=== PATIENT | female | born 1935 | race Caucasian/White ===

== ENCOUNTER 2018-10-10 11:51 | Inpatient (IN) | payer MEDICARE ==
[~2018-10-10] VITALS: Ht 167.6 cm; Wt 85.7 kg
--- OUTSIDE RECORDS SUMMARY | 2018-10-10 11:54 | XMS REPORT | Clinical Summary ---
Author Author [facility] Address Unknown Phone Unavailable Care Team Providers Care Tele Tech Name Role Phone Asked, No Pcp PCP Unavailable Allergies Comments Active Allergy Reactions Severity Noted Date Aspirin 03/28/2017 Black Pepper 03/28/2017 Medications End Date Status Medication Sig Dispensed Refills Start Date Active zolpidem (AMBIEN) 5 MG Take 5 mg by 0 tablet mouth nightly as needed for sleep. Active ascorbic acid, vitamin C, Take 500 mg 0 (VITAMIN C) 500 MG tablet by mouth daily. Active cyanocobalamin 500 MCG Take 500 mcg 0 tablet by mouth daily. Active pyridoxine, vitamin B6, Take 100 mg 0 (B-6) 100 MG tablet by mouth daily. Active bismuth subsalicylate Chew 524 mg 2 0 (PEPTO BISMOL) 262 mg (two) times a tablet,chewable day. Active ipratropium-albuterol Inhale 2 0 (COMBIVENT RESPIMAT) puffs every 4 20-100 mcg/actuation mist (four) hours inhaler as needed for wheezing. Active divalproex (DEPAKOTE) 500 Take 500 mg 0 MG EC tablet by mouth 3 (three) times a day. Active ipratropium-albuterol Take 3 mL by 0 (DUO-NEB) 0.5-2.5 mg/mL nebulization nebulizer 4 (four) times a day. Active gabapentin (NEURONTIN) Take 100 mg 0 100 mg capsule by mouth 3 (three) times a day. Active melatonin 3 mg tablet Take 3 mg by 0 mouth nightly. Active famotidine (PEPCID) 20 MG Take 20 mg by 0 tablet mouth daily. Active predniSONE (DELTASONE) 10 Take 10 mg by 0 mg tablet mouth daily. Active levothyroxine (SYNTHROID, Take 100 mcg 0 LEVOXYL) 100 mcg tablet by mouth daily. Active traMADol (ULTRAM) 50 mg Take 50 mg by 0 tablet mouth nightly as needed for moderate pain. Active acetaminophen (TYLENOL) Take 325 mg 0 325 MG tablet by mouth every 6 (six) hours as needed for fever. Active acetaminophen-codeine Take 1 tablet 0 (TYLENOL WITH CODEINE #4) by mouth 300-60 mg per tablet every 6 (six) hours as needed for moderate pain. Active sertraline (ZOLOFT) 100 Take 100 mg 0 MG tablet by mouth daily. Active Problems Problem Noted Date Chest pain, rule out acute myocardial infarction 03/28/2017 Cystitis 03/28/2017 Other specified hypothyroidism 03/28/2017 Depression 03/28/2017 Social History Date Tobacco Use Types Packs/Day Years Used Quit: 2001 Former Smoker 40 Smokeless Tobacco: Never Used Alcohol Use Drinks/Week oz/Week Comments No Sex Assigned at Date Recorded Not on file Industry Job Start Date Occupation Not on file Not on file Not on file Travel End Travel History Travel Start No recent travel history available. Last Filed Vital Signs Not on file Plan of Treatment Health Maintenance Due Date Last Done Comments SHINGLES VACCINES (#1) 1984 65+ PNEUMOCOCCAL VACCINE 08/12/1999 (1 of 2 - PCV13) INFLUENZA VACCINE 11/27/2018 Results Not on fileafter 10/09/2017 Insurance Type Payer Benefit Subscriber ID Effective Phone Address Plan / Dates Group Medicare MEDICARE MEDICARE xxxxxxxxxx 1999-P [place], PART A AND resent [place] B O [facility] MEDICAID [facility] xxxxxxxxx 2014-P [employer]+ resent [facility] Medicaid MEDICAID MEDICAID xxxxxxxxx 2016- Present Advance Directives Patient has advance care planning documents, and code status on file. For more i nformation, please contact: Martin Espino [address] [place] [address] Date Inactivated Comments Code Status Date Activated 03/30/2017 12:44 AM DNR 03/28/2017 6:45 PM Code Status decision reached by: Legal Surrogate Name of Surrogate: Nidia Posey Surrogate Relation: 3. Adult Child/Children 03/28/2017 6:45 PM DNR 03/28/2017 8:48 AM Code Status decision reached by: Legal Surrogate Name of Surrogate: Yoanna Posey Surrogate Relation: 3. Adult Child/Children 03/28/2017 8:48 AM Full Code 03/28/2017 6:13 AM Code Status decision reached by: Patient Code Status decision reached by: Patient
--- OUTSIDE RECORDS SUMMARY | 2018-10-10 11:54 | XMS REPORT ---
Author Author [facility] Address Unknown Phone Unavailable Care Team Providers Care Cobol Developer Name Role Phone Unavailable Unavailable Payers Payer Name Policy Type Policy Number Effective Date Expiration Date Problems This patient has no known problems. Allergies, Adverse Reactions, Alerts Allergy Name Allergy Type Status Severity Reaction(s) Onset Date Inactive Date Treating Clinician Comments aspirin DA Active U 2018-02-12 00:00:00 acetaminophen DA Active U 2018-02-12 00:00:00 black pepper DA Active U 2018-02-12 00:00:00 .ACETAMINO DA Active U 2006-11-27 00:00:00 .BLACK PEP DA Active U 2006-11-27 00:00:00 ASPIRIN DA Active U 2006-11-27 00:00:00 No Known Contrast Allergies DA Active U 2006-11-27 00:00:00 No Known Other Allergies DA Active U 2006-11-27 00:00:00 Medications This patient has no known medications. Results Test Description Test Time Test Comments Text Results Atomic Results Result Comments URIC ACID 2018-05-23 22:27:00 URIC ACID (test code=URIC) 4.5 mg/dL 2.6-7.2 [facility] PHONE# for criticals-[phone] or [phone] PHONE , FAX#
[2018-10-10] MEDS ORDERED: ALBUTEROL SULF 0.083% NEB SOLN 3 ML NEB NEB STA (12:33)
[2018-10-10] MEDS ORDERED: IPRATROPIUM BROMIDE 0.02% 2.5 ML NEB NEB ONE ×2 (12:45→15:15)
[2018-10-10] MEDS ORDERED: METHYLPREDNISOLONE SOD SUCC 125 MG/2ML VIAL IV ONE (12:45)
[2018-10-10 13:03] LABS: BASOPHILS # (AUTO) 0.1 (0.0-0.1); BASOPHILS % 0.4 % (0.0-1.0); EOSINOPHILS % 0.1 % (0.0-6.0); HEMATOCRIT 34.5 % (34.2-44.1); HEMOGLOBIN 10.7 g/dL (12.0-16.0); LYMPHOCYTES # (AUTO) 0.6 (1.0-3.2); MEAN CORPUSCULAR HEMOGLOBIN 26.8 pg (28-32); MEAN CORPUSCULAR VOLUME 86.3 fL (81-99); MONOCYTES # (AUTO) 0.7 (0.2-0.8); NEUTROPHILS # (AUTO) 16.8 (2.1-6.9); NEUTROPHILS % 90.6 % (38.7-80.0); PLATELET COUNT 293 x10e3/uL (140-360); RED CELL DISTRIBUTION WIDTH 15.9 % (11.7-14.4)
[2018-10-10 13:13] LABS: INR 1.02; PROTHROMBIN TIME 13.9 seconds (11.9-14.5)
[2018-10-10 13:14] LABS: PARTIAL THROMBOPLASTIN TIME 38.8 seconds (23.8-35.5)
[2018-10-10 13:15] LABS: ABG HCO3 35 mmol/L (23-28); ABG PCO2 58 mmHg (41-51); ABG PH 7.39 (7.31-7.41); ABG PO2 73 mmHg (80-105)
[2018-10-10 13:21] LABS: ALANINE AMINOTRANSFERASE 20 IU/L (0-55); ALBUMIN 2.8 g/dL (3.5-5.0); ALBUMIN/GLOBULIN RATIO 0.7 (0.8-2.0); ALKALINE PHOSPHATASE 112 IU/L (40-150); ANION GAP 14.8 mmol/L (8-16); BLOOD UREA NITROGEN 13 mg/dL (7-26); BUN/CREATININE RATIO 16 (6-25); CARBON DIOXIDE 33 mmol/L (22-29); CHLORIDE 89 mmol/L (98-107); CREATINE KINASE 77 IU/L (29-168); EST GLOMERULAR FILTRATION RATE > 60 ML/MIN (60-); GLUCOSE 150 mg/dL (74-118); MAGNESIUM 2.2 MG/DL (1.3-2.1); POTASSIUM 4.8 mmol/L (3.5-5.1); SODIUM 132 mmol/L (136-145)
[2018-10-10] MEDS ORDERED: ALLOPURINOL100 MG PO (13:27)
[2018-10-10] MEDS ORDERED: SERTRALINE HCL50 MG PO (13:27)
[2018-10-10] MEDS ORDERED: AMLODIPINE BESY10 MG PO (13:27)
[2018-10-10] MEDS ORDERED: GABAPENTIN100 MG PO (13:27)
[2018-10-10] MEDS ORDERED: TRAZODONE HCL50 MG PO (13:27)
[2018-10-10] MEDS ORDERED: FAMOTIDINE20 MG PO (13:27)
[2018-10-10] MEDS ORDERED: METOPROLOL TART25 MG PO (13:27)
[2018-10-10] MEDS ORDERED: LEVOTHYROXINE100 MCG PO (13:27)
[2018-10-10] MEDS ORDERED: POTASSIUM CHLO20 ME1 PO (13:27)
[2018-10-10] MEDS ORDERED: FOLIC ACID1 MG PO (13:27)
[2018-10-10] MEDS ORDERED: DIVALPROEX SOD125 M1 PO (13:27)
[2018-10-10] MEDS ORDERED: FUROSEMIDE40 MG PO (13:27)
[2018-10-10 13:28] LABS: B-TYPE NATRIURETIC PEPTIDE2 440.2 pg/mL (0-100)
--- NOTE | 2018-10-10 13:43 | Diagnostic Imaging Report ---
EXAMINATION: CHEST SINGLE (PORTABLE) INDICATION: Shortness of breath. COMPARISON: None FINDINGS: TUBES and LINES: None. LUNGS: Lungs are moderately inflated. There is central vascular congestion. There are bilateral perihilar and interstitial opacities. Patchy opacities at lung bases, left greater than right. There is asymmetric opacity at the left lung apex. PLEURA: Trace bilateral pleural effusions. No evidence of pneumothorax. HEART AND MEDIASTINUM: The cardiomediastinal silhouette is mildly enlarged. BONES AND SOFT TISSUES: No acute osseous abnormality. Surgical clips project over the left upper hemithorax. UPPER ABDOMEN: No free air under the diaphragm. IMPRESSION: Asymmetric opacity in the left lung apex. This may represent sequela of prior granulomatous disease, however chest CT is suggested for further evaluation. Cardiomegaly with mild pulmonary interstitial edema and trace bilateral pleural effusions. Patchy opacities at the lung bases likely represent atelectasis or alveolar edema. Superimposed pneumonia is possible in the appropriate clinical setting. Signed by: Dr. Margarita Bourgeois MD on 10/10/2018 1:40 PM
--- NOTE | 2018-10-10 14:15 | Diagnostic Imaging Report ---
Exam: Head CT without contrast History: Altered mental status Comparison studies: None Technique: Axial images were obtained from the skull base to the vertex. Coronal and sagittal images reconstructed from the axial data. Dose modulation, iterative reconstruction, and/or weight based adjustment of the mA/kV was utilized to reduce the radiation dose to as low as reasonably achievable. Radiation dose: Total DLP: 1008 cm mGy*cm. Estimated effective dose: DLP x 0.015 Intravenous contrast: None Findings: Exam somewhat limited by artifacts related to patient motion. In spite of limitations: Scalp: No abnormalities. Bones: No fractures, blastic or lytic lesions. Brain sulci: Mildly prominent Ventricles: Mild compensatory dilatation. No hydrocephalus. Extra-axial spaces: No masses, no fluid collection. Parenchyma: No mass, acute hemorrhage or acute cortical insults. Small chronic lacunar infarct in the body of the right caudate nucleus. A few scattered hypodensities in the supratentorial white matter are nonspecific most compatible with chronic microvascular ischemic changes. Sellar/suprasellar region: No abnormalities. Craniocervical junction: Patent foramen magnum. No Chiari one malformation. Incidental findings: Lens replacements for previous cataract surgery. Atherosclerotic calcifications in the carotid siphons and intradural vertebral arteries. IMPRESSION: Exam limited by motion artifacts. In spite of limitations: 1. No acute intracranial abnormalities. 2. Mild generalized brain volume loss. 3. Small chronic lacunar infarct in the right caudate nucleus. 4. Mild chronic microvascular ischemic changes. Signed by: Dr. Gómez Moore M.D. on 10/10/2018 2:12 PM
[2018-10-10] MEDS: PIPER-TAZ 3.375 GM 50 ML IV SCH ×2 (14:45→20:22)
--- NOTE | 2018-10-10 14:50 | NUR ---
called patient family member Funmilayoriley Posey and provided update of patient POC.
[2018-10-10 15:04] LABS: BILIRUBIN,URINE NEGATIVE (NEGATIVE); CLARITY,URINE CLEAR (CLEAR); COLOR,URINE YELLOW (YELLOW); KETONES,URINE TRACE (NEGATIVE); LEUKOCYTE ESTERASE ,URINE NEGATIVE (NEGATIVE); NITRITE,URINE NEGATIVE (NEGATIVE); PROTEIN,URINE DIPSTICK NEGATIVE (NEGATIVE); URINE UROBILINOGEN 0.2 mg/dL (0.2 - 1)
--- NOTE | 2018-10-10 15:09 | NUR ---
patient in bed resting with eyes closed. arroused to name. patient with audible wheezing. er md notified. orders placed into chart.
[2018-10-10] MEDS ORDERED: ALBUTEROL SULF 0.083% NEB SOLN 3 ML NEB NEB ONE (15:12)
[2018-10-10] MEDS ORDERED: ALBUTEROL SULF 0.083% NEB SOLN 3 ML NEB NEB SCH (15:30)
[2018-10-10] MEDS: AZITHROMYCIN 500MG/NS 250 ML 250 ML IV SCH (15:58)
--- OUTSIDE RECORDS SUMMARY | 2018-10-10 16:02 | XMS REPORT | Clinical Summary ---
Author Author [facility] Address Unknown Phone Unavailable Care Team Providers Care Policy And Planning Manager Name Role Phone Asked, No Pcp PCP [...] PART A AND resent [place] B O [facility] MEDICAID [facility] xxxxxxxxx 2014-P [employer]+ resent [facility] Medicaid MEDICAID MEDICAID xxxxxxxxx 2016- Present Advance Directives Patient has advance care planning documents, and code status on file. For more i nformation, please contact: Martin Espino [address] [place] [address] Date Inactivated Comments Code Status Date Activated [...]
[2018-10-10] MEDS ORDERED: SODIUM CHLORIDE 0.9% 50ML 50 ML ONE (16:35)
[2018-10-10] MEDS ORDERED: IOPAMIDOL 370 MG/ML 200 ML INFUS..BTL INJ ONE (16:35)
[2018-10-10 16:51] VITALS: BP 144/68
[2018-10-10 16:52] VITALS: BP 144/68
--- NOTE | 2018-10-10 17:01 | Diagnostic Imaging Report ---
EXAMINATION: CT of the chest with contrast, PE protocol. TECHNIQUE: Spiral CT images of the chest were performed from the lung apices through the level of the adrenal glands after the IV administration of 100 cc of Isovue 370. Thin section reconstructions were obtained with special concentration on the pulmonary arteries. Coronal and sagittal reformatted images were performed. COMPARISON: <none> CLINICAL HISTORY:Shortness of breath, AMS DISCUSSION: Exam limited as it was acquired during partial expiratory phase. Lungs: No filling defects are identified in the main, right or left pulmonary arteries to their segmental levels, to suggest pulmonary embolism. Mildly increased attenuation of the pulmonary parenchyma, likely secondary to scan acquired during partial expiration. Intralobular septal thickening, predominantly noted in the upper lungs. Scattered focal areas of mixed groundglass opacities and focal consolidations in the right upper lobe (series 3, image 30 and 32) left upper lobe (series 3, image 27), lingula (series 3, image 43), left lower lobe (series 3, image 58) and right lower lobe (series 3, image 59). Focal consolidation with air bronchograms in the lingula (series 3, image 62). A few tree-in-bud opacities are noted in the lateral left upper lobe (for example series 3, image 41) and lateral aspect of the right upper lobe (series 3, image 36). Mild bilateral lower lobe compressive atelectasis, right greater than left. Airways: Major airways are clear, without endobronchial lesions. Pleura: Small bilateral pleural effusions, right greater than left. Heart and mediastinum: Thyroid is unremarkable. Moderate cardiomegaly. No pericardial effusion. Aorta is nonaneurysmal. Main pulmonary artery is enlarged, measuring 3.8 cm. Atherosclerotic calcification of the coronary arteries and thoracic aorta. Lymph nodes: Enlarged right lower paratracheal lymph node which measures 1.2 cm in short axis (series 2, image 36). Borderline enlarged para-aortic node which measures 1.0 cm in short axis (series 2, image 36). Enlarged left lower paratracheal lymph node which measures 1.0 cm in short axis (series 2, image 38). Enlarged subcarinal lymph node which measures 1.4 cm in short axis (series 2, image 47) (. No axillary adenopathy. Abdomen: The visualized portions of the liver show diffuse hepatic steatosis. No focal lesions. Spleen, pancreas and adrenal glands are unremarkable. Bones and soft tissues: No aggressive lytic lesions. Generalized osteopenia. Multilevel degenerative disc changes in the thoracic spine. Soft tissues are grossly unremarkable. IMPRESSION: 1. No CT evidence of pulmonary embolism. 2. Findings in bilateral lungs likely represent a combination of multifocal pneumonia or aspiration, and fluid overload/edema. 3. Mild bilateral pleural effusions, right greater than left, and associated compressive atelectasis. 4. Enlarged main pulmonary artery, consistent with pulmonary hypertension. 5. Moderate cardio megaly. 6. Mediastinal adenopathy, as described, likely reactive. 7. Diffuse hepatic stenosis. Signed by: Dr. Herbert Gregg M.D. on 10/10/2018 4:58 PM
[2018-10-10 17:52] VITALS: BP 144/68
[2018-10-10] MEDS ORDERED: IPRATROPIUM BROMIDE 0.02% 2.5 ML NEB NEB SCH (18:00)
[2018-10-10] MEDS: FUROSEMIDE INJ 10 MG/ML 4 ML VIAL IV SCH (18:16)
--- NOTE | 2018-10-10 19:00 | NUR ---
Report received from CHARU Celeste. Patient received alert x1 resting on her bed with confused and complained that "I am Sick", took oxygen off. Assisted to put oxygen back and assisted to fix her position at this time. Denied pain and no SOB. Bed in lower position,locked. Call petersen within reach. Patient instructed to call for help as needed,verbalized and understand. Bed alarm on. Will continue to monitor.
[2018-10-10] MEDS: ALBUTEROL SULF 0.083% NEB SOLN 3 ML NEB NEB SCH ×2 (19:30→23:40)
[2018-10-10] MEDS: IPRATROPIUM BROMIDE 0.02% 2.5 ML NEB NEB SCH ×2 (19:35→23:40)
[2018-10-10 20:00] VITALS: BP 144/71
[2018-10-10] MEDS ORDERED: SODIUM CHLORIDE 0.9% 250ML 250 ML ONE (20:12)
[2018-10-10] MEDS: TRAZODONE HCL 50 MG TAB PO SCH (20:22)
[2018-10-10] MEDS: MELATONIN 5 MG TABLET PO SCH (20:22)
[2018-10-10] MEDS: GABAPENTIN 100 MG CAP PO SCH (20:22)
[2018-10-10 21:00] VITALS: BP 144/71
[2018-10-10] MEDS: METHYLPREDNISOLONE SOD SUCC 125 MG/2ML VIAL IV SCH (21:40)
[2018-10-10 21:43] LABS: CREATINE KINASE MB 2.5 ng/mL (0-5.0)
[2018-10-11] VITALS (8 sets, daily range): BP systolic 124–156; BP diastolic 63–80
[2018-10-11] MEDS: PIPER-TAZ 3.375 GM 50 ML IV SCH ×4 (00:36→17:40)
[2018-10-11] MEDS: ACETAMINOPHEN/CODEINE 300MG - 30MG TAB PO PRN ×2 (00:40→13:47)
[2018-10-11] MEDS: FUROSEMIDE INJ 10 MG/ML 4 ML VIAL IV SCH ×3 (01:31→21:53)
--- NOTE | 2018-10-11 02:35 | Consultation ---
DATE OF CONSULTATION: 10/10/2018 Pulmonary Medicine Consult REASON FOR REFERRAL: Respiratory failure. HISTORY OF PRESENT ILLNESS: Ms. Wynn is a pleasant 83-year-old female with respiratory failure. The patient lives in a halfway. She was having increasing dyspnea. She had associated wheezing. Onset of symptoms reportedly three days. The patient is becoming more confused and on 4 L/minute of oxygen saturation, we are having difficulty going above 94%. The patient is sent to the emergency room. The patient was seen to be quite dyspneic. She was given some transient BiPAP. She improved slowly. However, due to significant basis, she was admitted with respiratory failure. Chest x-ray and CT chest were consistent with bilateral pneumonia, multifocal. PAST MEDICAL HISTORY: Hypertension, COPD on home outpatient oxygen, hypothyroid, anemia, reported dementia, GERD, psychosis, CKD, and chronic back pain. MEDICATIONS: Medication list reviewed per the chart record. ALLERGIES: ZOLPIDEM, ASPIRIN, AND PEPPER. SOCIAL HISTORY: No alcohol, no drugs. The patient smoked from age 11 to 74, one pack per day. She is from [place], [place] and she lived [place] the country during her up[place], where [place] had a [place] farm and then she also had a horse. She transiently moved to [place] and then back to [place], lived on the farm. Eventually, she moved to [place]. She is biofuel for large period of time that she was in [place]. FAMILY HISTORY: Noncontributory. REVIEW OF SYSTEMS: Cannot get reliably, she is confused. OBJECTIVE: VITAL SIGNS: Currently afebrile, vital signs noted and reviewed per the chart record. 2 L/minute nasal cannula oxygen with 94% oxygen saturation. GENERAL: In no acute distress, has difficulty capturing her thoughts and memory. She gets short of breath after a few words. HEENT: Normocephalic and atraumatic. NECK: Supple. Throat midline. LUNGS: Bilateral air entry, mild wheezes, moderate air entry, which is decreased. CARDIOVASCULAR: S1, S2. No murmurs, rubs, or gallops. ABDOMEN: Soft and nontender. EXTREMITIES: No clubbing, no cyanosis, there is 1+, 2+ leg edema bilaterally. INTEGUMENT: No rash, there are mild stasis changes on legs. LABORATORY DATA: 4.8 potassium, 0.8 creatinine. 33 bicarbonate. 90 white count, 35 hematocrit, 293 platelets. LFTs mostly normalized. Chest x-ray with evidence mostly left lower lobe pneumonia. CT of chest, however, shows multifocal opacities, mild bronchiectasis was 30 mm in diameter at the trunk. IMPRESSION AND PLAN: 1. Acute respiratory failure, BiPAP salvage. 2. Chronic respiratory failure, hypoxemia, on home outpatient oxygen. 3. Encephalopathy, multifactorial, metabolic. 4. Bilateral pneumonia. 5. History of chronic obstructive pulmonary disease, treated as additional exacerbation. 6. Bronchiectasis. 7. Hypertension. 8. Hypothyroid condition. 9. Reported dementia. 10. Gastroesophageal reflux disease. 11. History of psychosis. 12. Mild chronic kidney disease. 13. History of chronic back pain. 14. History of biofuel exposure in youth and chronic smoking. Continue supportive oxygen. Wean off BiPAP as tolerated. Followup mentation or blood gases to assess state of COPD. Steroids. Antibiotics. Bronchodilators. Serial neuropsychiatric exams. The patient needs intermittent radiography to ensure improvement. If there is slight improvement, we will consider bronchoscopy. We will also get good sputum culture with this structural lung disease underlying issue. Thank you very much, Dr. Owens for allowing me to participate in the care of Ms. Wynn. Do not hesitate to contact me if I can help in anyway. MD JHON West/PENNY /[id number]
[2018-10-11] MEDS: IPRATROPIUM BROMIDE 0.02% 2.5 ML NEB NEB SCH ×6 (03:00→23:00)
[2018-10-11] MEDS: ALBUTEROL SULF 0.083% NEB SOLN 3 ML NEB NEB SCH ×6 (03:00→23:00)
--- NOTE | 2018-10-11 05:25 | NUR ---
Patient complained pain on her left cheek and inside of mouth. Called Dr. Owens twice to get ordered,left voice massages at this. Waiting for MD's call back.
[2018-10-11 05:33] LABS: BASOPHILS # (AUTO) 0.1 (0.0-0.1); BASOPHILS % 0.5 % (0.0-1.0); EOSINOPHILS # (AUTO) 0.1 (0.0-0.4); EOSINOPHILS % 0.6 % (0.0-6.0); HEMOGLOBIN 10.6 g/dL (12.0-16.0); LYMPHOCYTES # (AUTO) 0.4 (1.0-3.2); LYMPHOCYTES % 3.4 % (18.0-39.1); MEAN CORPUSCULAR HEMOGLOBIN 26.2 pg (28-32); MEAN CORPUSCULAR HGB CONC 30.3 g/dL (31-35); MEAN CORPUSCULAR VOLUME 86.4 fL (81-99); MONOCYTES # (AUTO) 0.2 (0.2-0.8); MONOCYTES % 1.7 % (4.4-11.3); NEUTROPHILS # (AUTO) 9.9 (2.1-6.9); NEUTROPHILS % 89.6 % (38.7-80.0); PLATELET COUNT 295 x10e3/uL (140-360); RED BLOOD COUNT 4.05 x10e6/uL (3.6-5.1); RED CELL DISTRIBUTION WIDTH 15.8 % (11.7-14.4)
[2018-10-11] MEDS: METHYLPREDNISOLONE SOD SUCC 125 MG/2ML VIAL IV SCH ×2 (06:04→14:49)
[2018-10-11] MEDS: LEVOTHYROXINE SODIUM 100 MCG TAB PO SCH (06:04)
[2018-10-11 06:09] LABS: ALBUMIN 2.5 g/dL (3.5-5.0); ALBUMIN/GLOBULIN RATIO 0.6 (0.8-2.0); ANION GAP 13.9 mmol/L (8-16); CALCIUM 10.1 mg/dL (8.4-10.2); CREATININE, SERUM 0.98 mg/dL (0.57-1.11); POTASSIUM 3.9 mmol/L (3.5-5.1)
--- NOTE | 2018-10-11 07:00 | NUR ---
Report given to oncoming nurse. No issued noted.
[2018-10-11] MEDS: FAMOTIDINE 20 MG TAB PO SCH (07:37)
[2018-10-11] MEDS: SERTRALINE HCL 50 MG TAB PO SCH (10:05)
[2018-10-11] MEDS: AZITHROMYCIN 500MG/NS 250 ML 250 ML IV SCH (10:05)
[2018-10-11] MEDS: FOLIC ACID 1 MG TAB PO SCH (10:05)
[2018-10-11] MEDS: ALLOPURINOL 100 MG TAB PO SCH (10:05)
[2018-10-11] MEDS: GABAPENTIN 100 MG CAP PO SCH ×3 (10:05→21:54)
[2018-10-11] MEDS: AMLODIPINE BESYLATE 10 MG TAB PO SCH (10:06)
[2018-10-11] MEDS: METOPROLOL TARTRATE 25 MG TAB PO SCH (10:06)
[2018-10-11] MEDS ORDERED: DEXTROSE 50% SYRINGE 50 ML IV PRN (12:45)
--- NOTE | 2018-10-11 13:41 | NUR ---
Dr Shields notified of consult.
[2018-10-11 13:47] LABS: CREATINE KINASE MB 1.1 ng/mL (0-5.0)
--- NOTE | 2018-10-11 15:25 | NUR ---
Nutrition Screen Note RD Recommendation for Physician: -Continue current diet as ordered Plan of Care: RD following, monitoring for tolerance and adequacy Nutrition reason for involvement: Diagnosis Primary Diagnose(s): CHF, COPD exacerbation PMH: Hypertension, COPD on home outpatient oxygen, hypothyroid, anemia, reported dementia, GERD, psychosis, CKD, and chronic back pain. Ht: 68in Wt: 191.13lb BMI: 29.1kg/m2 IBW: 140lb RD Assessment: (10/11) Chart reviewed. Labs and meds reviewed. 83yo F, who was admitted from residential for respiratory failure and confusion. Visited pt in the room. Pt reported fair appetite with >50% observed lunch intake. Per daughter, pt was having nausea and vomited this AM. Pt has some chewing difficulty with her denture but refused texture modification. Pt also reported swallowing problem for many years. Pt stated the bone below my neck is bothering me when I swallow. It is not in the right position. However, pt was tolerating current diet texture without aspiration episode noted. Weight has been stable. Will continue to monitor and follow. Current Diet: cardiac diet Malnutrition Evaluation (10/11/2018) The patient does not meet criteria for a specified degree of malnutrition at this time. Will re-evaluate at follow-up as appropriate. Diet Education Needs Assessment: Diet education indicated, pt was not interested. Nutrition Care Level: low Signed: Sanam Choi, , RD, LD
[2018-10-11] MEDS: ENOXAPARIN SOD INJ 40 MG/0.4 ML SYR SC SCH (16:51)
--- NOTE | 2018-10-11 17:49 | NUR ---
Pulmonary Medicine DATE OF ENCOUNTER: 10/11/2018 SUBJECTIVE: 3 L/min by nasal cannula. feels about the same, not better. lungs are tight. ate 50%. still coughs. REVIEW OF SYSTEMS: no gi bleeding, no chest pain OBJECTIVE: VITAL SIGNS: vital signs noted per the chart record. GENERAL: NAD, calmer HEENT: Normocephalic and atraumatic. NECK: Supple. Throat midline. LUNGS: Bilateral air entry, mild wheezes, mild rhonchi CARDIOVASCULAR: S1, S2. No murmurs, rubs ABDOMEN: Soft, nontender. EXTREMITIES: No clubbing, no cyanosis, 1 - 2+ leg edema bilaterally. INTEGUMENT: No rash, mild stasis changes on legs. LABORATORY DATA: 3.9 k, 0.98 cr. 11 wbc. 35 hct. 295 plt. IMPRESSION AND PLAN: 1. Acute respiratory failure, BiPAP salvage. Better 2. Chronic respiratory failure, hypoxemic. on outpatient oxygen. 3. Encephalopathy, multifactorial, metabolic. Better 4. Bilateral gram negative pneumonia, acquired prior to hospitalization. 5. History of chronic obstructive pulmonary disease, treated as additional exacerbation. 6. Bronchiectasis. 7. Hypertension. 8. Hypothyroid condition. 9. Reported dementia. 10. Gastroesophageal reflux disease. 11. History of psychosis. 12. Mild chronic kidney disease. 13. History of chronic back pain. 14. History of biofuel exposure in youth and chronic smoking. Continue supportive oxygen. Followup mentation serially Steroids wean. Antibiotics Bronchodilators. Repeat AM CXR If there is poor improvement, we will consider bronchoscopy to get a good sputum culture with the underlying structural lung disease Thank you very much, Dr. Owens for allowing me to participate in the care of Ms. Wynn. Do not hesitate to contact me if I can help in anyway.
--- NOTE | 2018-10-11 19:00 | NUR ---
Walking rounds done and report given. Call petersen within reach.
--- NOTE | 2018-10-11 20:39 | History and Physical ---
CHIEF COMPLAINT: Shortness of breath, lower extremity edema. HISTORY OF PRESENT ILLNESS: This is an 83-year-old female with history of CHF, COPD, who currently lives in a halfway, reports from the halfway due to hypoxia and lower extremity edema. The patient is a very poor historian, likely due to underlying dementia, so information is being obtained from the daughter at bedside. Daughter reports that she has been very short of breath over the last several days and has been having lower extremity edema. There are some reports of some cough, congestion, and subjective fever. The patient was presented here and was found to have a low oxygen saturation. She was apparently on oxygen at the halfway as well. The patient was seen and evaluated at bedside on the medical floor. Currently, she is in IMCU. She is breathing much better. Got diuretics, steroids and antibiotics and is being followed up by Pulmonary. REVIEW OF SYSTEMS: Pertinent positives: Lower extremity edema, shortness of breath, cough, congestion. Pertinent negatives: Denies any chest pain, palpitation, nausea, vomiting, diarrhea, dysuria, hematuria, frequency, urgency, lightheadedness, dizziness, abdominal pain, headaches, or any other complaints. The rest of the 14-point review of systems are reviewed with the patient and are negative. ALLERGIES: TO ASPIRIN, HEPARIN, AND AMBIEN. HOME MEDICATIONS: Furosemide 40 mg daily, potassium chloride 20 mEq daily, divalproex 125 mg daily, allopurinol 100 mg daily, amlodipine 10 mg daily, Pepcid 20 mg daily, folic acid 1 mg daily, gabapentin 100 mg p.o. t.i.d., levothyroxine 100 mcg daily, metoprolol 25 mg daily, sertraline 50 mg daily, trazodone 50 mg daily. PAST MEDICAL HISTORY: She has hypothyroidism, peripheral neuropathy, hypertension, morbid obesity, dementia, CHF. PAST SURGICAL HISTORY: Reports none. FAMILY HISTORY: Hypertension and diabetes. SOCIAL HISTORY: No drugs. No alcohol. Does not smoke. She has children. She was a former smoker. She is in the halfway. PHYSICAL EXAMINATION: VITAL SIGNS: Temperature is 97.1, pulse is 81, respiratory rate is 18, blood pressure is 131/74, pulse ox 96% on 2 L nasal cannula. GENERAL: Not in acute distress. Alert and oriented x3. Cooperative on examination. HEENT: Head is normocephalic and atraumatic. Eyes; pupils are equal, round, and reactive to light bilaterally. Extraocular movements are intact. NECK: Supple. Good range of motion. Throat, no evidence of erythema or exudates in the posterior pharynx. Has poor dentition. PULMONARY: Clear to auscultation bilaterally. She does have some expiratory wheezing appreciated with some fine crackles. CARDIOVASCULAR: Positive S1 and S2. No murmurs, rubs, or gallops. ABDOMEN: Soft and nontender to palpation. Bowel sounds present. MUSCULOSKELETAL: Strength is 5/5 throughout. No evidence of any muscle deficits on examination. No weakness appreciated. NEUROLOGICAL: Cranial nerves II through XII grossly intact. No evidence of any neurological deficits on exam. SKIN: Intact. Warm to touch. Good cap refill. PSYCHIATRIC: Normal affect and mood. EXTREMITIES: She has 1+ pedal edema in bilateral lower extremities. LABORATORY FINDINGS: Showed white count 11, hemoglobin 10.6, hematocrit 35, platelets of 295. Coagulation: PT 13.9, INR 1. Chemistry: Sodium 132, potassium 3.9, chloride 91, bicarb 35, anion gap of 13, BUN 16, creatinine 0.98, glucose 187, calcium 10.1, AST 17, ALT 16, total bilirubin 0.3. Troponins are negative. Albumin is 6.5. Urinalysis was negative. Blood gas shows pH 7.39, pCO2 of 58, pO2 of 70, bicarb 35. MICROBIOLOGY: Urine cultures pending. Blood cultures pending. IMAGING STUDIES: Chest x-ray shows symmetrical transfer in the left lung apex. There is some interstitial pulmonary edema. Could be underlying pneumonia as well. CT brain found to be negative for any acute findings. CT chest, no evidence of pulmonary embolism. Bilateral lungs represent combination of multifocal pneumonia or aspiration and fluid overload edema. Mild bilateral pleural effusions, right greater than left. Moderate cardiomegaly. Mediastinal adenopathy, likely reactive and diffuse hepatic steatosis. IMPRESSION: 1. Acute exacerbation of congestive heart failure with unknown dysfunction. 2. Healthcare-associated pneumonia. 3. Chronic obstructive pulmonary disease exacerbation. 4. Hypertension. 5. Hypothyroidism. 6. Baseline dementia. PLAN: At this time, get a 2D echo, cardiology consultation, cardioprotective medications, and put on IV Lasix. Blood and urine cultures pending. Continue with IV antibiotics and Pulmonary is following very closely. Continue with IV steroids for her COPD, neb treatments, and antibiotics. Resume same home medications including antihypertensive medications. Continue with levothyroxine from home. Start on Lovenox 40 mg subcu for DVT prophylaxis. Put on a heart-healthy diet. MD CEDRIC Gerber/MODSruthi /[id number]
[2018-10-11] MEDS ORDERED: TRAZODONE HCL 50 MG TAB PO SCH (21:00)
[2018-10-11] MEDS: TRAZODONE HCL 50 MG TAB PO SCH (21:53)
[2018-10-11] MEDS: MELATONIN 5 MG TABLET PO SCH (21:53)
[2018-10-12] VITALS (8 sets, daily range): BP systolic 127–148; BP diastolic 61–70
[2018-10-12] MEDS: IPRATROPIUM BROMIDE 0.02% 2.5 ML NEB NEB SCH ×6 (03:00→23:25)
[2018-10-12] MEDS: ALBUTEROL SULF 0.083% NEB SOLN 3 ML NEB NEB SCH ×6 (03:00→23:25)
[2018-10-12 05:15] LABS: BASOPHILS # (AUTO) 0.1 (0.0-0.1); BASOPHILS % 0.4 % (0.0-1.0); HEMATOCRIT 37.4 % (34.2-44.1); LYMPHOCYTES # (AUTO) 0.7 (1.0-3.2); LYMPHOCYTES % 3.8 % (18.0-39.1); MEAN CORPUSCULAR HEMOGLOBIN 26.1 pg (28-32); MEAN CORPUSCULAR HGB CONC 29.4 g/dL (31-35); MEAN CORPUSCULAR VOLUME 88.8 fL (81-99); MONOCYTES # (AUTO) 0.8 (0.2-0.8); MONOCYTES % 4.5 % (4.4-11.3); NEUTROPHILS # (AUTO) 15.5 (2.1-6.9); NEUTROPHILS % 86.8 % (38.7-80.0); PLATELET COUNT 330 x10e3/uL (140-360); RED BLOOD COUNT 4.21 x10e6/uL (3.6-5.1); RED CELL DISTRIBUTION WIDTH 15.9 % (11.7-14.4)
[2018-10-12 05:27] LABS: ANION GAP 16.9 mmol/L (8-16); CALCIUM 10.2 mg/dL (8.4-10.2); CREATININE, SERUM 1.06 mg/dL (0.57-1.11); POTASSIUM 3.9 mmol/L (3.5-5.1)
[2018-10-12] MEDS: LEVOTHYROXINE SODIUM 100 MCG TAB PO SCH (06:29)
[2018-10-12] MEDS: PIPER-TAZ 3.375 GM 50 ML IV SCH ×5 (06:29→23:18)
[2018-10-12] MEDS: ACETAMINOPHEN/CODEINE 300MG - 30MG TAB PO PRN ×2 (06:30→18:21)
--- NOTE | 2018-10-12 06:31 | Diagnostic Imaging Report ---
EXAMINATION: CHEST SINGLE (PORTABLE) INDICATION: Pneumonia. Congestive heart failure. COMPARISON: 10/10/18. FINDINGS: TUBES and LINES: None. LUNGS: No interval change in appearance of the lungs, with mild multifocal patchy densities particularly in the left upper and lower lobes. Mild elevation of the right hemidiaphragm. Mild prominence of the pulmonary vasculature. PLEURA: No or pneumothorax. Small bilateral pleural effusions. HEART AND MEDIASTINUM: Cardiac size remains mildly enlarged. BONES AND SOFT TISSUES: No acute osseous lesion. Soft tissues are unremarkable. UPPER ABDOMEN: No free air under the diaphragm. IMPRESSION: No significant interval change. Findings again suggestive of mild pulmonary venous congestion with possibly superimposed infection. Signed by: Dr. Ronald Coffey M.D. on 10/12/2018 6:28 AM
[2018-10-12] MEDS: FAMOTIDINE 20 MG TAB PO SCH (08:00)
[2018-10-12] MEDS: AZITHROMYCIN 500MG/NS 250 ML 250 ML IV SCH (08:05)
[2018-10-12] MEDS: AMLODIPINE BESYLATE 10 MG TAB PO SCH (08:05)
[2018-10-12] MEDS: FUROSEMIDE INJ 10 MG/ML 4 ML VIAL IV SCH ×2 (08:05→20:24)
[2018-10-12] MEDS: GABAPENTIN 100 MG CAP PO SCH ×3 (08:05→20:24)
[2018-10-12] MEDS: METOPROLOL TARTRATE 25 MG TAB PO SCH ×2 (08:05→17:26)
[2018-10-12] MEDS: FOLIC ACID 1 MG TAB PO SCH (08:05)
[2018-10-12] MEDS: ALLOPURINOL 100 MG TAB PO SCH (08:06)
[2018-10-12] MEDS: SERTRALINE HCL 50 MG TAB PO SCH (08:06)
[2018-10-12] MEDS ORDERED: PREDNISONE 20 MG TAB PO SCH (09:00)
--- NOTE | 2018-10-12 11:00 | NUR ---
DAUGHTER AT BEDSIDE. PATIENT IN NAD AND NO COMPLAINTS AT THIS TIME.
--- NOTE | 2018-10-12 13:42 | NUR ---
Pulmonary Medicine DATE OF ENCOUNTER: 10/12/2018 SUBJECTIVE: 3 L/min by nasal cannula. 96% saturation. ate 1/3 meal. pain when coughing, coughs a lot. some phlegm thick green being expectorated. REVIEW OF SYSTEMS: no gi bleeding, no chest pain OBJECTIVE: VITAL SIGNS: vital signs noted per the chart record. GENERAL: NAD, talkative HEENT: Normocephalic and atraumatic. NECK: Supple. Throat midline. LUNGS: Bilateral air entry, mild wheezes, mild to mod rhonchi CARDIOVASCULAR: S1, S2. No murmurs, rubs ABDOMEN: Soft, nontender. EXTREMITIES: No clubbing, no cyanosis, 1 - 2+ leg edema bilaterally. INTEGUMENT: No rash, mild stasis changes on legs. LABORATORY DATA: 1.1 cr, k 3.9. 18 wbc. 37 hct. IMPRESSION AND PLAN: 1. Acute respiratory failure, BiPAP salvage. Better 2. Chronic respiratory failure, hypoxemic. on outpatient oxygen. 3. Encephalopathy, multifactorial, metabolic. Better 4. Bilateral gram negative pneumonia, acquired prior to hospitalization. 5. History of chronic obstructive pulmonary disease, treated as additional exacerbation. 6. Bronchiectasis. 7. Hypertension. 8. Hypothyroid condition. 9. Reported dementia. 10. Gastroesophageal reflux disease. 11. History of psychosis. 12. Mild chronic kidney disease. 13. History of chronic back pain. 14. History of biofuel exposure in youth and chronic smoking. Continue supportive oxygen. Steroids wean. Antibiotics follow cultures Bronchodilators. Repeat AM CXR toradol cough medication Thank you very much, Dr. Owens for allowing me to participate in the care of Ms. Wynn. Do not hesitate to contact me if I can help in anyway.
--- NOTE | 2018-10-12 14:57 | Progress Note ---
DATE: 10/12/2018 Medicine Progress Note SUBJECTIVE: The patient is doing well today with no other complaints. She states breathing a little bit better, but she is still short of breath on examination. LAB FINDINGS: Show white count is 17, but she is on steroids, hemoglobin 11, hematocrit 37, and platelets of 330. Chemistry; sodium 143, potassium 3.9, chloride 94, bicarb 36, anion gap of 16, BUN is 29, creatinine is 1, glucose is 267, calcium is 10.2. Urinalysis negative. Blood cultures negative. Urine cultures negative. Chest x-ray from this morning shows no significant interval change. Findings suggestive of mild pulmonary vascular congestion superimposed infection. OBJECTIVE: VITAL SIGNS: Temperature 98, pulse 73, respirations 18, blood pressure is 127/60, pulse ox 96% on 3 L nasal cannula. GENERAL: Not in acute distress, alert and oriented x3. Cooperative on examination. HEENT: Head is normocephalic and atraumatic. Eyes; pupils are equal, round, and reactive to light bilaterally. Extraocular movements are intact. NECK: Supple. Good range of motion. THROAT: No evidence of erythema or exudates in the posterior pharynx. Has poor dentition. PULMONARY: Clear to auscultation bilaterally. No wheezing, rales, or rhonchi. No crackles appreciated. Shows decreased breath sounds bilaterally. CARDIOVASCULAR: Positive S1, S2. No murmurs, rubs, or gallops appreciated. ABDOMEN: Soft, nondistended, nontender to palpation. Bowel sounds present. MUSCULOSKELETAL: Strength is 5/5 throughout. No evidence of any muscle deficits on examination. NEUROLOGICAL: Cranial nerves II through XII are grossly intact. No evidence of any neurological deficits on exam. SKIN: Intact. Warm to touch. Good capillary refill. PSYCHIATRIC: Normal affect and mood. EXTREMITIES: No edema. Good range of motion throughout. IMPRESSION: 1. Acute exacerbation of congestive heart failure with unknown dysfunction. 2. Healthcare-associated pneumonia. 3. Chronic obstructive pulmonary disease exacerbation. 4. Hypertension. 5. Hypothyroidism. 6. Baseline dementia. PLAN: At this time, we are still awaiting on a 2D echo results. Cardiology is following. She is on cardioprotective medications. Continue with IV diuretics for now. Get a.m. labs. Continue with steroids, neb treatments, antibiotics. Pulmonary is following closely. Continue same home medications. Continue with Lovenox for DVT prophylaxis. Encourage ambulation. The patient is on home O2 as well. MD CEDRIC Gerber/PENNY /[id number]
[2018-10-12] MEDS: BENZONATATE 100 MG CAP PO SCH ×2 (15:57→20:24)
[2018-10-12] MEDS ORDERED: ENOXAPARIN SOD INJ 40 MG/0.4 ML SYR SC SCH (17:00)
[2018-10-12] MEDS: ARTIFICIAL TEARS (OPTH) 15 ML BTL OU SCH (17:26)
[2018-10-12] MEDS: ENOXAPARIN SOD INJ 40 MG/0.4 ML SYR SC SCH (17:26)
--- NOTE | 2018-10-12 18:45 | NUR ---
PATIENT MOVED TO ROOM 189 VIA BED WITH ALL BELONGING D/T LOW CENSUS. ARIELA (DAUGHTER) CALLED TO NOTIFY , MESSAGE LEFT
--- NOTE | 2018-10-12 19:53 | Consultation ---
DATE OF CONSULTATION: 10/12/2018 Cardiac Consultation Report REASON FOR CONSULTATION: Heart failure, respiratory distress. HISTORY OF PRESENT ILLNESS: Information taken from the patient record by reviewing [facility], from here, from nursing staff as well as from her daughter, who is at bedside. She is a delightful 83-year-old lady, who is known with longstanding history of COPD. She is on [facility] oxygen. She does have also history of chronic lower extremity edema, several episodes of hypoxemia, and diagnosis of CHF. She does have history of chronic kidney disease, right renal cyst, gout, hypothyroidism, dementia. The patient is really truly stay in wheel chair. She does not do much activity. She is taking her medication at [facility]. She needs to be brought urgently to this institution because of severe shortness of breath, swelling of the lower extremities, orthopnea, paroxysmal nocturnal dyspnea. She needs to have rescue BiPAP as well as diuretics were given and other treatment. She looks better today with less swelling. She is able to be on nasal cannula. Her daughter said she does not to do much of activity. She is forgetful. She is in wheelchair. She does have episodes of leg edema, leg swelling. She had recent venous Doppler and she has been told there is no blood clot. She did have also several cellulitis of the lower extremities. REVIEW OF SYSTEMS: Really truly taken with the help of the daughter and more than the patient herself because of her demented status. GENERAL: No fever. No chills. HEENT: Remarkable for decreased hearing. PULMONARY AND CARDIAC: There is no prior history of myocardial infarction. There is no history of coronary artery disease. She does have history of congestive heart failure with repeated swelling of the lower extremity, shortness of breath, easy fatigability, etc., as per acute illness. GI: Constipation. Occasional nausea. No abdominal pain. : The patient is incontinent. She uses diapers. MUSCULOSKELETAL: Aches and pain. NEUROLOGICAL: The patient in wheelchair. ENDOCRINE: There is no history of diabetes mellitus. HEMATOLOGY: There is no history of GI bleed or bleeding tendency. The rest of the 14-point review of system are reviewed and only as mentioned above. ALLERGIES: THE PATIENT IS INTOLERANT TO ASPIRIN RATHER THAN ALLERGIC TO ASPIRIN, HEPARIN QUESTIONABLE DETAILS, AMBIEN CAUSING MORE CONFUSION, AND PEPPER CAUSING HER TO HAVE DIFFICULTY BREATHING. USP MEDICATIONS: Include Norvasc 10 mg a day, Lasix 40 mg a day, potassium chloride 20 mEq a day. Levothyroxine 100 mcg a day. Lopressor 25 mg a day, allopurinol 100 mg a day. Depakote 125 mg a day. Folic acid 1 mg a day. Gabapentin 100 mg t.i.d., Zoloft 50 mg a day. Trazodone 50 mg a day, Pepcid 20 mg a day. PAST MEDICAL HISTORY: 1. COPD, on home oxygen. 2. History of CHF questionable details. 3. Gout. 4. Chronic kidney disease. 5. Repeated cellulitis of the lower extremity. 6. Chronic swelling of the lower extremities. 7. Dementia. 8. Ventral hernia. 9. Hemorrhoids. 10. Neurology and neuritis. FAMILY HISTORY: Few member of the family hypertensive, diabetic. No premature coronary artery disease. In fact, her daughter with her she whitley the baby of the daughter's. She does have diabetes. SOCIAL HISTORY: [facility]. She is a . She is nonsmoker and non-alcohol drinker. PHYSICAL EXAMINATION: VITAL SIGNS: Height of 5 feet 8 inches, weight of 195 pounds, blood pressure 130/70, heart rate of 80, respiratory rate of 18. HEENT: Pupils are reactive. NECK: No elevation of jugular venous pulsation. No bruit. No thyromegaly. No lymphadenopathy. CHEST: Decreased lung expansion. Decreased air entry in bases. I cannot hear wheezes but other attending heard wheezes on her on admission. Heart PMI 5th left intercostal space. Normal first and second heart sound. Ejection systolic murmur. ABDOMEN: Soft with good bowel sounds. No organomegaly. EXTREMITIES: Decreasing edema. No feet pulses. Good capillary refill. MUSCULOSKELETAL: The patient's gait not examined. As per daughter, she is in wheelchair. She is able to move her extremities. She is really truly forgetful. SKIN: There is no evidence of cellulitis now. LABORATORY DATA: Sodium of 143, potassium 3.9, BUN 29, creatinine of 1.06. White blood cell count of 17.8, hemoglobin of 11, hematocrit 37%, platelet count of 330,000. Troponin of . IMAGING DATA: Chest x-ray showing bilateral pleural effusion and congestion. CT chest suggestive for pneumonia superimposed on aspiration with lymphadenopathy shown to be reactive prominence of pulmonary artery, probably indicating pulmonary hypertension. Also Cardiac enzymes done today were negative. EKG showing normal sinus rhythm, low-voltage QRS, right bundle branch block. Nonspecific ST changes. ABG showed pH of 7.39, pCO2 of 58, PO2 of 73 on 2 L nasal cannula. IMPRESSION AND PLAN: 1. Respiratory distress with hypercapnia, pCO2 of 58, possibly representing [id number] exacerbation of chronic obstructive pulmonary disease. 2. Definitely right-sided heart failure as evident by edema. The finding on the CT scan of pulmonary hypertension and the pulmonary changes and the patient being on oxygen dependency. 3. Possible diastolic heart failure, possible systolic heart failure. Echocardiogram will be helpful in differentiation. 4. Hypertension. 5. Pulmonary hypertension. 6. Hypothyroidism. 7. Dementia. 8. Debility. 9. Leukocytosis. 10. GERD. 11. Abdominal ventral hernia. 12. Probability of coronary artery disease, but we discussed the case with the daughter. PLAN: Plan will be for very conservative treatment because of her comorbid condition and her demented status. The patient will be followed with you. Orders are written. We will try to decrease the dose of amlodipine because of the leg edema and swelling. Will make metoprolol to twice a day because of the short-acting nature of this medication. Differential diagnosis, workup, care discussed with the daughter. Questions are answered and total care of more than 50 minutes. Questions are answered. MD LEANNA Cee/OSMANL /[id number]
[2018-10-12] MEDS: TRAZODONE HCL 50 MG TAB PO SCH (20:24)
[2018-10-12] MEDS: MELATONIN 5 MG TABLET PO SCH (20:24)
[2018-10-13] VITALS (8 sets, daily range): BP systolic 107–151; BP diastolic 50–89
[2018-10-13] MEDS: KETOROLAC TROMETHAMINE 30 MG/ML VIAL IM PRN ×2 (01:29→10:32)
--- NOTE | 2018-10-13 02:23 | NUR ---
Patient had medium liquid-soft green BM, assisted to given bed bath and changed gown/linens and diaper with help of go[employer]enna Darren. Connected to [employer] at this time. Patient tolerated well. Will continue to monitor.
--- NOTE | 2018-10-13 02:40 | NUR ---
Bedbath given to patient at this time.
[2018-10-13] MEDS: ALBUTEROL SULF 0.083% NEB SOLN 3 ML NEB NEB SCH ×6 (03:30→23:00)
[2018-10-13] MEDS: IPRATROPIUM BROMIDE 0.02% 2.5 ML NEB NEB SCH ×6 (03:30→23:00)
[2018-10-13] MEDS: PIPER-TAZ 3.375 GM 50 ML IV SCH ×3 (05:39→18:50)
[2018-10-13] MEDS: LEVOTHYROXINE SODIUM 100 MCG TAB PO SCH (05:39)
[2018-10-13 05:42] LABS: BASOPHILS # (AUTO) 0.1 (0.0-0.1); BASOPHILS % 0.5 % (0.0-1.0); HEMATOCRIT 34.2 % (34.2-44.1); LYMPHOCYTES # (AUTO) 1.5 (1.0-3.2); LYMPHOCYTES % 12.4 % (18.0-39.1); MEAN CORPUSCULAR HGB CONC 29.2 g/dL (31-35); MEAN CORPUSCULAR VOLUME 89.1 fL (81-99); MONOCYTES % 7.7 % (4.4-11.3); NEUTROPHILS # (AUTO) 9.1 (2.1-6.9); NEUTROPHILS % 73.1 % (38.7-80.0); PLATELET COUNT 293 x10e3/uL (140-360); RED BLOOD COUNT 3.84 x10e6/uL (3.6-5.1); RED CELL DISTRIBUTION WIDTH 15.9 % (11.7-14.4)
[2018-10-13 05:47] LABS: ALBUMIN 2.4 g/dL (3.5-5.0); ANION GAP 13.7 mmol/L (8-16); CALCIUM 9.5 mg/dL (8.4-10.2); CREATININE, SERUM 1.06 mg/dL (0.57-1.11); POTASSIUM 3.7 mmol/L (3.5-5.1)
[2018-10-13 06:09] LABS: ALBUMIN/GLOBULIN RATIO 0.6 (0.8-2.0)
[2018-10-13 06:13] LABS: THYROID STIMULATING HORMONE 0.281 uIU/mL (0.350-4.940)
[2018-10-13] MEDS: GUAIFENESIN 200 MG/10 ML UDC PO PRN ×2 (06:24→13:11)
[2018-10-13] MEDS: ACETAMINOPHEN/CODEINE 300MG - 30MG TAB PO PRN ×2 (06:24→17:47)
[2018-10-13 07:15] LABS: CHOL/HDL RATIO 4.4 (3.0-3.6)
--- NOTE | 2018-10-13 07:20 | NUR ---
Report given to oncoming nurse,walking round done. No issued noted.
[2018-10-13] MEDS ORDERED: AMLODIPINE BESYLATE 10 MG TAB PO SCH (09:00)
[2018-10-13] MEDS ORDERED: PREDNISONE 20 MG TAB PO SCH (09:00)
[2018-10-13] MEDS: SERTRALINE HCL 50 MG TAB PO SCH (09:03)
[2018-10-13] MEDS: FAMOTIDINE 20 MG TAB PO SCH (09:03)
[2018-10-13] MEDS: METOPROLOL TARTRATE 25 MG TAB PO SCH ×2 (09:04→17:50)
[2018-10-13] MEDS: BENZONATATE 100 MG CAP PO SCH ×3 (09:04→21:25)
[2018-10-13] MEDS: GABAPENTIN 100 MG CAP PO SCH ×3 (09:04→21:25)
[2018-10-13] MEDS: AMLODIPINE BESYLATE 5 MG TAB PO SCH (09:04)
[2018-10-13] MEDS: FOLIC ACID 1 MG TAB PO SCH (09:06)
[2018-10-13] MEDS: ALLOPURINOL 100 MG TAB PO SCH (09:06)
[2018-10-13] MEDS: AZITHROMYCIN 500MG/NS 250 ML 250 ML IV SCH (09:06)
[2018-10-13] MEDS: ARTIFICIAL TEARS (OPTH) 15 ML BTL OU SCH ×2 (09:09→17:01)
--- NOTE | 2018-10-13 12:29 | NUR ---
Pulmonary Medicine DATE OF ENCOUNTER: 10/13/2018 SUBJECTIVE: Still expectorating phlegm. Mildly less phlegm. Still thick, green expectorate. 4 L/min oxygen. Still cough related pains REVIEW OF SYSTEMS: no gi bleeding, no epistaxis OBJECTIVE: VITAL SIGNS: vital signs noted per the chart record. GENERAL: NAD, talkative HEENT: Normocephalic and atraumatic. NECK: Supple. Throat midline. LUNGS: Bilateral air entry, mild wheezes, mild to mod rhonchi CARDIOVASCULAR: S1, S2. No murmurs, rubs ABDOMEN: Soft, nontender. EXTREMITIES: No clubbing, no cyanosis, 1+ leg edema bilaterally. INTEGUMENT: No rash, mild stasis changes on legs. LABORATORY DATA: 3.7 k, cr 1.06. bun 33. 12 wbc. 34 hct. plt 293. IMPRESSION AND PLAN: 1. Acute respiratory failure, BiPAP salvage. off bipap 2. Chronic respiratory failure, hypoxemic. on outpatient oxygen. 3. Encephalopathy, multifactorial, metabolic. Better 4. Bilateral gram negative pneumonia, acquired prior to hospitalization. 5. History of chronic obstructive pulmonary disease, treated as additional exacerbation. 6. Bronchiectasis, chronic underlying lung disease. 7. Hypertension. 8. Hypothyroid condition. 9. Reported dementia. 10. Gastroesophageal reflux disease. 11. History of psychosis. 12. Mild chronic kidney disease. 13. History of chronic back pain. 14. History of biofuel exposure in youth and chronic smoking. Continue supportive oxygen. Steroids wean Antibiotics submitted sputum cultures, follow up Bronchodilators. Repeat AM CXR toradol, cough medication Thank you very much, Dr. Owens for allowing me to participate in the care of Ms. Wynn. Do not hesitate to contact me if I can help in anyway.
[2018-10-13] MEDS: FUROSEMIDE 20 MG TAB PO SCH (13:11)
[2018-10-13] MEDS: POTASSIUM CHLORIDE 20 MEQ TAB CR PO SCH (13:11)
[2018-10-13] MEDS: ENOXAPARIN SOD INJ 40 MG/0.4 ML SYR SC SCH (17:49)
[2018-10-13] MEDS ORDERED: CEPACOL SORE THROAT LOZENGES PO PRN (18:30)
--- NOTE | 2018-10-13 20:37 | Progress Note ---
DATE: 10/13/2018 Medicine Progress Note SUBJECTIVE: The patient reports having some pain throughout. I did adjust her Tylenol No. 3 to every 6 hours to q.12. No overnight events. She reports breathing much better. PHYSICAL EXAMINATION: VITAL SIGNS: Temperature is 98.6, pulse 72, respiratory rate is 21, blood pressure 151/72, pulse ox 98% on 3 L nasal cannula. GENERAL: Not in acute distress, alert and oriented x3. Cooperative on examination. HEENT: Head is normocephalic and atraumatic. Eyes; pupils are equal, round, and reactive to light bilaterally. Extraocular movements are intact. NECK: Supple. Good range of motion. THROAT: No evidence of erythema or exudates in the posterior pharynx. Has poor dentition. PULMONARY: Clear to auscultation bilaterally. No wheezing, rales, or rhonchi. No crackles appreciated. CARDIOVASCULAR: Positive S1, S2. No murmurs, rubs, or gallops appreciated. ABDOMEN: Soft, nondistended, nontender to palpation. Bowel sounds present. MUSCULOSKELETAL: Strength is 5/5 throughout. No evidence of any muscle deficits on examination. NEUROLOGICAL: Cranial nerves II through XII are grossly intact. No evidence of any neurological deficits on exam. SKIN: Intact. Warm to touch. Good capillary refill. PSYCHIATRIC: Normal affect and mood. EXTREMITIES: No edema. Good range of motion throughout. LABORATORY DATA: Lab findings show white count 12.4, hemoglobin is 10, hematocrit is 34, platelets of 293. Coagulation; PT 30, INR 1, PTT 38. Chemistry; sodium 142, potassium 3.7, chloride 94, bicarb 38, anion gap of 13, BUN 33, creatinine is 1, glucose 156, calcium 9.5, albumin is 2.4. TSH 0.481, LDL of 87. MICROBIOLOGY: Blood cultures no growth. Urine cultures negative. Sputum cultures were pending. IMPRESSION AND PLAN: 1. Acute exacerbation of congestive heart failure of unknown dysfunction. Still waiting on a 2D echo results. Cardiology is following. 2. Diuretics. We will continue with electrolyte replacement. In relation to chronic obstructive pulmonary disease on steroids. 3. Continue with antibiotics, Pulmonary is following very closely. She is complaining of pain which I will change the q.12 Tylenol No. 3 to q.6 hours p.r.n. Otherwise, continue same plan of care. She is on Lovenox for deep vein thrombosis prophylaxis. The patient is already on home O2. MD CEDRIC Gerber/PENNY /[id number]
[2018-10-13] MEDS: TRAZODONE HCL 50 MG TAB PO SCH (21:24)
[2018-10-13] MEDS: MELATONIN 5 MG TABLET PO SCH (21:25)
[2018-10-14] VITALS (10 sets, daily range): BP systolic 112–143; BP diastolic 50–91
[2018-10-14] MEDS: PIPER-TAZ 3.375 GM 50 ML IV SCH ×4 (00:50→18:59)
[2018-10-14] MEDS: IPRATROPIUM BROMIDE 0.02% 2.5 ML NEB NEB SCH ×7 (03:00→23:30)
[2018-10-14] MEDS: ALBUTEROL SULF 0.083% NEB SOLN 3 ML NEB NEB SCH ×6 (03:00→23:30)
[2018-10-14] MEDS: ACETAMINOPHEN/CODEINE 300MG - 30MG TAB PO PRN ×2 (04:23→20:22)
[2018-10-14 05:43] LABS: ANION GAP 13.9 mmol/L (8-16); CALCIUM 9.5 mg/dL (8.4-10.2); CREATININE, SERUM 1.05 mg/dL (0.57-1.11); POTASSIUM 3.9 mmol/L (3.5-5.1)
[2018-10-14] MEDS: LEVOTHYROXINE SODIUM 100 MCG TAB PO SCH (05:48)
--- NOTE | 2018-10-14 06:40 | NUR ---
Rec'd pt in bed sleeping, VS stable, no c/o at this time. will continue to monitor
--- NOTE | 2018-10-14 06:51 | Diagnostic Imaging Report ---
EXAMINATION: CHEST SINGLE (PORTABLE) INDICATION: ^pneumonia COMPARISON: 10/12/2018 FINDINGS: AP view TUBES and LINES: None. LUNGS: Lungs are well inflated. Central vascular congestion on mild interstitial edema. Again seen bilateral hazy opacities at the lung bases. PLEURA: No pneumothorax. Suspected trace bilateral pleural effusions. HEART AND MEDIASTINUM: The cardiomediastinal silhouette is enlarged. BONES AND SOFT TISSUES: No acute osseous lesion. Soft tissues are unremarkable. UPPER ABDOMEN: No free air under the diaphragm. IMPRESSION: No significant interval change from prior exam. Unchanged pulmonary vascular congestion and mild interstitial edema. Suspected small bilateral pleural effusions. Bibasilar mild hazy opacities, likely subsegmental atelectasis. However, underlying pneumonia cannot be excluded in the appropriate clinical context. Signed by: Dr. Ta Saba MD on 10/14/2018 6:48 AM
[2018-10-14] MEDS: ALLOPURINOL 100 MG TAB PO SCH (08:38)
[2018-10-14] MEDS: BENZONATATE 100 MG CAP PO SCH ×3 (08:39→22:19)
[2018-10-14] MEDS: AMLODIPINE BESYLATE 5 MG TAB PO SCH (08:39)
[2018-10-14] MEDS: GABAPENTIN 100 MG CAP PO SCH ×3 (08:39→22:19)
[2018-10-14] MEDS: SERTRALINE HCL 50 MG TAB PO SCH (08:39)
[2018-10-14] MEDS: FAMOTIDINE 20 MG TAB PO SCH (08:40)
[2018-10-14] MEDS: FOLIC ACID 1 MG TAB PO SCH (08:40)
[2018-10-14] MEDS: METOPROLOL TARTRATE 25 MG TAB PO SCH ×2 (08:40→16:37)
[2018-10-14] MEDS: FUROSEMIDE 20 MG TAB PO SCH (08:40)
[2018-10-14] MEDS: POTASSIUM CHLORIDE 20 MEQ TAB CR PO SCH (08:40)
[2018-10-14] MEDS: ARTIFICIAL TEARS (OPTH) 15 ML BTL OU SCH ×2 (09:00→16:24)
[2018-10-14] MEDS ORDERED: PREDNISONE 20 MG TAB PO SCH (09:00)
[2018-10-14] MEDS: AZITHROMYCIN 500MG/NS 250 ML 250 ML IV SCH (10:00)
--- NOTE | 2018-10-14 12:27 | NUR ---
Pulmonary Medicine DATE OF ENCOUNTER: 10/14/2018 SUBJECTIVE: Cough still. patient with continued pain on coughing. CXR mild bilateral pneumonitis, stable. Complicating of tarry stools. 3 L/min oxygen. REVIEW OF SYSTEMS: no rash, no epistaxis OBJECTIVE: VITAL SIGNS: vital signs noted per the chart record. GENERAL: NAD, talkative HEENT: Normocephalic and atraumatic. NECK: Supple. Throat midline. LUNGS: Bilateral air entry, mild rhonchi CARDIOVASCULAR: S1, S2. No murmurs, rubs ABDOMEN: Soft, nontender. EXTREMITIES: No clubbing, no cyanosis, 1+ leg edema bilaterally. INTEGUMENT: No rash, mild stasis changes on legs. LABORATORY DATA: k 3.9, 1.1 cr. yesterday 12 wbc. 34 hct. 293 plt. IMPRESSION AND PLAN: 1. Acute respiratory failure, BiPAP salvage. off bipap 2. Chronic respiratory failure, hypoxemic. on outpatient oxygen. 3. Encephalopathy, multifactorial, metabolic. Better 4. Bilateral gram negative pneumonia, acquired prior to hospitalization. 5. History of chronic obstructive pulmonary disease, treated as additional exacerbation. 6. Bronchiectasis, chronic underlying lung disease. 7. Hypertension. 8. Hypothyroid condition. 9. Reported dementia. 10. Gastroesophageal reflux disease. 11. History of psychosis. 12. Mild chronic kidney disease. 13. History of chronic back pain. 14. History of biofuel exposure in youth & chronic smoking. Continue supportive oxygen. Steroids wean Antibiotics sputum cultures follow up Bronchodilators. Repeat AM CXR cough medication repeat h/h, gi consult hold blood thinners as necessary Thank you very much, Dr. Owens for allowing me to participate in the care of Ms. Wynn. Do not hesitate to contact me if I can help in anyway.
[2018-10-14 13:17] LABS: BASOPHILS # (AUTO) 0.1 (0.0-0.1); BASOPHILS % 0.6 % (0.0-1.0); EOSINOPHILS # (AUTO) 0.1 (0.0-0.4); EOSINOPHILS % 0.4 % (0.0-6.0); HEMATOCRIT 38.8 % (34.2-44.1); HEMOGLOBIN 11.4 g/dL (12.0-16.0); LYMPHOCYTES # (AUTO) 0.9 (1.0-3.2); LYMPHOCYTES % 6.7 % (18.0-39.1); MEAN CORPUSCULAR HEMOGLOBIN 26.6 pg (28-32); MEAN CORPUSCULAR HGB CONC 29.4 g/dL (31-35); MEAN CORPUSCULAR VOLUME 90.4 fL (81-99); MONOCYTES # (AUTO) 0.6 (0.2-0.8); MONOCYTES % 4.3 % (4.4-11.3); NEUTROPHILS # (AUTO) 11.2 (2.1-6.9); NEUTROPHILS % 80.2 % (38.7-80.0); PLATELET COUNT 298 x10e3/uL (140-360); RED BLOOD COUNT 4.29 x10e6/uL (3.6-5.1); RED CELL DISTRIBUTION WIDTH 16.2 % (11.7-14.4)
[2018-10-14] MEDS ORDERED: SODIUM CHLORIDE 0.9% 250ML 250 ML ONE (13:18)
[2018-10-14 13:24] LABS: INR 0.91; PROTHROMBIN TIME 12.7 seconds (11.9-14.5)
[2018-10-14 13:25] LABS: PARTIAL THROMBOPLASTIN TIME 31.2 seconds (23.8-35.5)
[2018-10-14 14:58] LABS: LYMPHOCYTES % (MANUAL) 8 % (19-48); MONOCYTES % (MANUAL) 4 % (3.4-9.0); MYELOCYTES % (MANUAL) 2 % (0-0); NEUTROPHILS % (MANUAL) 86 % (40-74)
[2018-10-14 14:59] LABS: ANISOCYTOSIS SLIGHT; PLATELET MORPHOLOGY COMMENT NORMAL; RBC MORPHOLOGY COMMENT NORMAL
[2018-10-14 15:00] LABS: PLATELET ESTIMATE ADEQUATE
[2018-10-14] MEDS: PANTOPRAZOLE 40 MG 10ML VIAL IV SCH (16:24)
[2018-10-14] MEDS: NYSTATIN 15 GM POWDER UD BTL TOP SCH (16:39)
--- NOTE | 2018-10-14 18:37 | NUR ---
Dr. De Los Santos paged for new patient consult
--- NOTE | 2018-10-14 19:32 | Progress Note ---
DATE: 10/14/2018 Medicine Progress Note SUBJECTIVE: The patient apparently had some black tarry stool today this morning. GI has been consulted. There is also some evidence of some purulent discharge from lower lumbar suturing that was performed by Dermatology as an outpatient. PHYSICAL EXAMINATION: VITAL SIGNS: Temperature is 97, pulse 76, respiratory rate 15, blood pressure 133/67, and pulse ox 97% on 2 L nasal cannula. GENERAL: Not in acute distress, alert and oriented x3. Cooperative on examination. HEENT: Head is normocephalic and atraumatic. Eyes; pupils are equal, round, and reactive to light bilaterally. Extraocular movements are intact bilaterally. NECK: Supple. Good range of motion. THROAT: No evidence of erythema or exudates in the posterior pharynx. Has poor dentition. PULMONARY: Clear to auscultation bilaterally. No wheezing, rales, or rhonchi. No crackles appreciated. CARDIOVASCULAR: Positive S1, S2. No murmurs, rubs, or gallops appreciated. ABDOMEN: Soft, nondistended, nontender to palpation. Bowel sounds present. MUSCULOSKELETAL: Strength is 5/5 throughout. No evidence of any muscle deficits on examination. No weakness appreciated. NEUROLOGICAL: Cranial nerves II through XII are grossly intact. No evidence of any neurological deficits on exam. SKIN: Intact. Warm to touch. Good capillary refill. PSYCHIATRIC: Normal affect and mood. EXTREMITIES: No edema. Good range of motion throughout. LABORATORY DATA: Lab findings show white count of 14, hemoglobin 11.4, hematocrit of 38, platelets of 298. Coagulation was normal. Chemistry; sodium 142, potassium 3.9, chloride 93, bicarb 39, anion gap of 13, BUN is 25, creatinine is 1, glucose is 123, calcium is 9.5. Stool occult blood was positive. MICROBIOLOGY: Blood cultures no growth. Urine cultures were negative. Sputum cultures showed to be currently normal lexus. IMAGING STUDIES: Chest x-ray from this morning showed no significant interval change from prior examination. Unchanged pulmonary vascular congestion with mild interstitial edema. Suspected small bilateral pleural effusion. Bibasilar mild hazy opacity likely subsegmental atelectasis could be underlying pneumonia. IMPRESSION: 1. Acute exacerbation of congestive heart failure with diastolic dysfunction. 2. Healthcare associated pneumonia. 3. Chronic obstructive pulmonary disease exacerbation. 4. Hypertension. 5. Hypothyroidism. 6. Baseline dementia. 7. Lower lumbar wound infection with sutures. 8. Black tarry stool, concern for upper gastrointestinal bleed. PLAN: At this time, continue with IV diuretics. IV antibiotics. All cultures were found to be negative. Continue steroids, neb treatments, and antibiotics. Pulmonary is following very closely. In relation to her new GI bleed or concern for GI bleed, GI has been consulted to put on Protonix 40 mg IV b.i.d. She does have like a wound infection in lower lumbar aspect of her spine on physical exam, in which I will go ahead and get a wound culture and start on IV antibiotics. Discontinue the azithromycin. Continue with vancomycin and Zosyn. Consultants involved Pulmonary, Cardiology, GI and Infectious Disease. MD CEDRIC Gerber/MODL /[id number]
--- NOTE | 2018-10-14 20:05 | NUR ---
patient received from the ICU via bed. patient alert and oriented at time of arrival. All personal belonging with the patient at this time. The patient complained of kevin area pain at this time. Sheriff in place and draining.
[2018-10-14] MEDS: VANCOMYCIN 1GM/NS 250 ML 250 ML IV SCH (20:28)
[2018-10-14] MEDS: TRAZODONE HCL 50 MG TAB PO SCH (22:19)
[2018-10-14] MEDS: MELATONIN 5 MG TABLET PO SCH (22:19)
[2018-10-15] VITALS (9 sets, daily range): BP systolic 129–184; BP diastolic 43–98
[2018-10-15] MEDS: PIPER-TAZ 3.375 GM 50 ML IV SCH ×5 (00:36→23:42)
[2018-10-15] MEDS: IPRATROPIUM BROMIDE 0.02% 2.5 ML NEB NEB SCH ×6 (03:00→23:00)
[2018-10-15] MEDS: ALBUTEROL SULF 0.083% NEB SOLN 3 ML NEB NEB SCH ×6 (03:00→23:00)
--- NOTE | 2018-10-15 04:43 | NUR ---
patient in bed with eye closed, bed in low and locked position, IV intact.
[2018-10-15] MEDS: LEVOTHYROXINE SODIUM 100 MCG TAB PO SCH (05:42)
[2018-10-15 05:50] LABS: BASOPHILS # (AUTO) 0.1 (0.0-0.1); BASOPHILS % 0.7 % (0.0-1.0); EOSINOPHILS # (AUTO) 0.2 (0.0-0.4); EOSINOPHILS % 1.6 % (0.0-6.0); HEMATOCRIT 35.6 % (34.2-44.1); HEMOGLOBIN 10.8 g/dL (12.0-16.0); LYMPHOCYTES # (AUTO) 2.1 (1.0-3.2); LYMPHOCYTES % 15.4 % (18.0-39.1); MEAN CORPUSCULAR HEMOGLOBIN 26.9 pg (28-32); MEAN CORPUSCULAR HGB CONC 30.3 g/dL (31-35); MEAN CORPUSCULAR VOLUME 88.6 fL (81-99); MONOCYTES # (AUTO) 0.7 (0.2-0.8); MONOCYTES % 5.4 % (4.4-11.3); NEUTROPHILS # (AUTO) 9.1 (2.1-6.9); PLATELET COUNT 271 x10e3/uL (140-360); RED BLOOD COUNT 4.02 x10e6/uL (3.6-5.1); RED CELL DISTRIBUTION WIDTH 16.1 % (11.7-14.4)
[2018-10-15 06:12] LABS: ANION GAP 12.8 mmol/L (8-16); CALCIUM 9.4 mg/dL (8.4-10.2); CREATININE, SERUM 1.06 mg/dL (0.57-1.11); POTASSIUM 3.8 mmol/L (3.5-5.1)
--- NOTE | 2018-10-15 07:10 | NUR ---
RCD PT AT BED PT IS ALERT AND ORIENTED PT RESTING ON BED NO SIGNS OF ANY DISTRESS NOTED IV PATENT BED LOW AND LOCKED CALL LIGHT IN REACH
--- NOTE | 2018-10-15 07:50 | NUR ---
PT WENT TO PROCEDURE IN SAFE CONDITION
--- NOTE | 2018-10-15 08:45 | NUR ---
PT IS FROM [facility] AND WILL RETURN UPON DISCHARGE
[2018-10-15] MEDS ORDERED: PREDNISONE 20 MG TAB PO SCH (09:00)
[2018-10-15 09:01] LABS: ANISOCYTOSIS SLIGHT; LYMPHOCYTES % (MANUAL) 20 % (19-48); MONOCYTES % (MANUAL) 3 % (3.4-9.0); MYELOCYTES % (MANUAL) 1 % (0-0); NEUTROPHILS % (MANUAL) 76 % (40-74); PLATELET ESTIMATE ADEQUATE; PLATELET MORPHOLOGY COMMENT NORMAL; RBC MORPHOLOGY COMMENT NORMAL
--- NOTE | 2018-10-15 09:15 | NUR ---
PT BACK AFTER PROCEDURE PT IS ALERT AND ORIENTED VITALS CHECKED PT RESTING ON BED BED LOW AND LOCKED CALL LIGHT IN REACH
[2018-10-15] MEDS: VANCOMYCIN 1GM/NS 250 ML 250 ML IV SCH ×2 (10:00→20:00)
[2018-10-15] MEDS: PANTOPRAZOLE 40 MG 10ML VIAL IV SCH ×2 (10:00→17:00)
[2018-10-15] MEDS: GABAPENTIN 100 MG CAP PO SCH ×3 (10:00→21:00)
[2018-10-15] MEDS: FOLIC ACID 1 MG TAB PO SCH (10:00)
[2018-10-15] MEDS: NYSTATIN SUSPENSION 5 ML UDC PO SCH ×4 (10:00→21:00)
[2018-10-15] MEDS: ALLOPURINOL 100 MG TAB PO SCH (10:00)
[2018-10-15] MEDS: FUROSEMIDE 20 MG TAB PO SCH (10:00)
[2018-10-15] MEDS: NYSTATIN 15 GM POWDER UD BTL TOP SCH ×2 (10:00→17:00)
[2018-10-15] MEDS: SERTRALINE HCL 50 MG TAB PO SCH (10:00)
[2018-10-15] MEDS: POTASSIUM CHLORIDE 20 MEQ TAB CR PO SCH (10:00)
[2018-10-15] MEDS: PREDNISONE 10 MG TAB PO SCH (10:00)
[2018-10-15] MEDS: AMLODIPINE BESYLATE 5 MG TAB PO SCH (10:00)
[2018-10-15] MEDS: BENZONATATE 100 MG CAP PO SCH ×3 (10:00→21:00)
[2018-10-15] MEDS: ARTIFICIAL TEARS (OPTH) 15 ML BTL OU SCH ×2 (10:00→17:00)
[2018-10-15] MEDS: METOPROLOL TARTRATE 25 MG TAB PO SCH ×2 (10:00→17:00)
--- NOTE | 2018-10-15 11:01 | Operative Report ---
DATE OF PROCEDURE: 10/15/2018 SURGEON: Ildefonso Shore MD PROCEDURE: Esophagogastroduodenoscopy with brushings and biopsies. INDICATIONS FOR PROCEDURE: Heartburn, indigestion, history of melena, guaiac-positive stools. MEDICATIONS: The patient was done under MAC, please see anesthesiologist's note. PROCEDURE IN DETAIL: With the patient in left lateral decubitus position the flexible fiberoptic Olympus gastroscope was introduced into the esophagus under direct visualization without any difficulty. There were some scattered whitish plaques noted pretty much throughout the esophagus and brushings were obtained to rule out Juliet. The scope was then advanced with ease into the stomach traversing a small sliding hiatal hernia. Mucosa overlying the antrum and the body revealed some diffuse erythema and moderate edema and biopsies were obtained and sent to stain for H pylori. Minute ulcers were noted in the antrum without active bleeding or stigmata of recent hemorrhage. Biopsies were obtained. Pylorus was of normal contour and shape, it was intubated with ease and the scope was advanced all the way to the second portion of the duodenum. The scope was then withdrawn slowly. Mucosa overlying the proximal second portion and duodenal bulb appeared to be within normal limits. The scope was then withdrawn back into the stomach and retroflexed and mucosa overlying the fundus and cardia appeared to be within normal limits. The scope was then straightened out. The stomach was decompressed. The scope was subsequently withdrawn. The patient tolerated the procedure well. IMPRESSION: 1. Rule out Juliet esophagitis. 2. Small sliding hiatal hernia. 3. Gastritis. 4. Gastric ulcers, antrum, minute without active bleeding or stigmata of recent hemorrhage. Biopsies obtained. PLAN: Follow up histology. Continue Protonix 40 mg IV b.i.d. Start nystatin swish and swallow as ordered. Findings do not necessarily explain the patient's melena. She might benefit from a colonoscopy. Ildefonso Shore MD [facility] [place]/OSMANL /[id number] cc: Dave Owens MD
[2018-10-15] MEDS ORDERED: SODIUM CHLORIDE 0.9% 250ML 250 ML ONE (11:02)
--- NOTE | 2018-10-15 12:30 | NUR ---
Spoke with Dr. Owens regarding dc plan. He states he's monitoring cultures, but anticipate discharge back to [place] on Saturday; most likely on oral abx.
--- NOTE | 2018-10-15 13:03 | NUR ---
Pulmonary Medicine DATE OF ENCOUNTER: 10/15/2018 SUBJECTIVE: CXR with left atelectasis small, o/w stable 2 L/min oxygen by [place] rosa placed yesterday less productive cough, more retained secretions REVIEW OF SYSTEMS: no rash, no epistaxis OBJECTIVE: VITAL SIGNS: vital signs noted per the chart record. GENERAL: NAD, talkative HEENT: Normocephalic and atraumatic. NECK: Supple. Throat midline. LUNGS: Bilateral air entry, mild rhonchi CARDIOVASCULAR: S1, S2. No murmurs, rubs ABDOMEN: Soft, nontender. EXTREMITIES: No clubbing, no cyanosis, 1+ leg edema bilaterally. INTEGUMENT: No rash, mild stasis changes on legs. LABORATORY DATA: 3.8 k, 1.1 cr. 39 hco3. 14 wbc, 36 hct. IMPRESSION AND PLAN: 1. Acute respiratory failure, BiPAP salvage. off bipap 2. Chronic respiratory failure, hypoxemic. on outpatient oxygen. 3. Encephalopathy, multifactorial, metabolic. Better 4. Bilateral gram negative pneumonia, acquired prior to hospitalization. 5. History of chronic obstructive pulmonary disease, treated as additional exacerbation. 6. Bronchiectasis, chronic underlying lung disease. 7. Hypertension. 8. Hypothyroid condition. 9. Reported dementia. 10. Gastroesophageal reflux disease. 11. History of psychosis. 12. Mild chronic kidney disease. 13. History of chronic back pain. 14. History of biofuel exposure in youth & chronic smoking. 15. melena, GI bleed Continue supportive oxygen. Steroids wean Antibiotics Bronchodilators. Repeat intermittent CXR until cleared Augment bronchial hygiene, CPT cough medication hold blood thinners as necessary for GI bleed Thank you very much, Dr. Owens for allowing me to participate in the care of Ms. Wynn. Do not hesitate to contact me if I can help in anyway.
--- NOTE | 2018-10-15 13:27 | Progress Note ---
DATE: 10/15/2018 Medicine Progress Note SUBJECTIVE: The patient is doing much better today with no other issues. She underwent an EGD today, which showed evidence of gastritis, but no evidence of any active bleeding. PHYSICAL EXAMINATION: VITAL SIGNS: Temperature is 98.2, pulse 71, respiratory rate 20, blood pressure 146/43, pulse ox 94% on 3 L nasal cannula. GENERAL: Not in acute distress, alert and oriented x3. Cooperative on examination. HEENT: Head is normocephalic and atraumatic. Eyes; pupils are equal, round, and reactive to light bilaterally. Extraocular movements are intact bilaterally. NECK: Supple. Good range of motion. THROAT: No evidence of erythema or exudates in the posterior pharynx. Has poor dentition. PULMONARY: Clear to auscultation bilaterally. No wheezing, rales, or rhonchi. No crackles appreciated. CARDIOVASCULAR: Positive S1, S2. No murmurs, rubs, or gallops appreciated. ABDOMEN: Soft, nondistended, nontender to palpation. Bowel sounds present. MUSCULOSKELETAL: Strength is 5/5 throughout. No evidence of any muscle deficits on examination. No weakness appreciated. NEUROLOGICAL: Cranial nerves II through XII are grossly intact. No evidence of any neurological deficits on exam. SKIN: Intact. Warm to touch. Good capillary refill. PSYCHIATRIC: Normal affect and mood. EXTREMITIES: No edema. Good range of motion throughout. LABORATORY DATA: White count 13.5, hemoglobin 10.8, hematocrit is 35, platelets of 271. Chemistries reviewed; sodium 144, potassium 3.8, chloride 96, bicarb 39, anion gap 12, BUN is 23, creatinine is 1, glucose 123, calcium 9.4. Cultures; blood cultures, no growth. Urine cultures were negative. Sputum cultures seem to be negative. IMAGING STUDIES: Chest x-ray today shows no significant interval change from prior examination. Unchanged pulmonary vascular congestion and mild interstitial edema. Suspect a small bilateral pleural effusion seen. IMPRESSION: 1. Acute exacerbation of congestive heart failure with diastolic dysfunction. 2. Healthcare associated pneumonia. 3. Chronic obstructive pulmonary disease exacerbation. 4. Hypertension. 5. Hypothyroidism. 6. Baseline dementia. 7. Lower lumbar wound infection with sutures, much improved now with antibiotics. 8. Black tarry stool with concern for upper GI bleed. Status post EGD performed on 10/15/2018: Shows gastritis, small hiatal hernia, gastric ulcers without any evidence of any active bleeding and concerns for Juliet esophagitis. PLAN: At this time, continue with IV antibiotics for underlying pneumonia. Also on diuretics. All cultures have been found to be negative. She is on steroids, neb treatments, and antibiotics and Pulmonary is following closely. She will be on oral nystatin for possible Juliet esophagitis as well as Protonix b.i.d. as per GI recommendations. We will continue with IV antibiotics for now. ID got involved as well. Pulmonary, Cardiology, GI and Infectious Disease all been consulted. We will follow very closely. Discussed case with Case Management about placement. Currently, the patient lives in a care home and will likely end up going back to the same facility. MD CEDRIC Gerber/PENNY /[id number]
[2018-10-15] MEDS: ACETAMINOPHEN/CODEINE 300MG - 30MG TAB PO PRN (16:29)
[2018-10-15] MEDS ORDERED: PROPOFOL IV EMULSION 10 MG/ML 50 ML VIAL ONE (18:30)
--- NOTE | 2018-10-15 19:17 | NUR ---
PT RESTING ON BED BED SIDE REPORT GIVEN TO ONCOMING NURSE
[2018-10-15] MEDS ORDERED: FENTANYL CITRATE/PF 100MCG/2 ML INJ ONE (19:39)
[2018-10-15] MEDS: MELATONIN 5 MG TABLET PO SCH (21:00)
[2018-10-15] MEDS: TRAZODONE HCL 50 MG TAB PO SCH (21:00)
--- NOTE | 2018-10-15 23:09 | Consultation ---
DATE OF CONSULTATION: 10/15/2018 CHIEF COMPLAINT: The patient is concerned about infection. HISTORY OF PRESENT ILLNESS: This patient who is an 83-year-old, she was admitted on October 10 through the emergency room. The patient comes in with shortness of breath and not feeling well, aching all over. The patient was a little bit confused. Does not provide any meaningful information. PAST MEDICAL HISTORY: The patient has a history of COPD, hypothyroidism, hypertension, dementia, GERD, psychosis, chronic kidney disease, chronic back pain. PAST SURGICAL HISTORY: Denies. ALLERGIES: NKA. SOCIAL HISTORY: No smoking, drug abuse, or alcohol abuse. FAMILY HISTORY: Could not be obtained. REVIEW OF SYSTEMS: She denies any. The patient was admitted to be seen by Pulmonary. She was seen by Cardiology. Her sputum showing yeast. Blood cultures were negative. Her white count when she first came was 11, went up to 17, and now is 13.5. Hemoglobin of 10.8. Sodium 144, potassium of 3.8, creatinine 1.06. She had a chest x-ray, which showed vascular congestion, small bilateral effusion, basilar mild hazy opacities. PHYSICAL EXAMINATION: GENERAL: She is currently alert and oriented x3, does not seem to be in acute distress. VITAL SIGNS: Stable. Currently afebrile. HEENT: She does not appear icteric. NECK: Supple. CHEST: A few crackles bilateral. COR: S1, S2. No S3, S4, or murmur. ABDOMEN: Soft. Bowel sounds present. No tenderness. EXTREMITIES: No edema. SKIN: No rash. IMPRESSION: 1. Shortness of breath on admission, seem to have resolved. 2. History of chronic obstructive pulmonary disease, history of hypertension, history of dementia, history of anemia. I would recommend to discontinue antibiotic. Continue supportive care at the present time. The patient I think here with fluid overload. Clinically, seems to be stable. 3. Sputum represent yeast, probably oral lexus. I would recommend to observe the patient clinically. We will discuss Internal Medicine. Further recommendations to follow. MD PAULA Sheldon/PENNY /[id number]
[2018-10-16] VITALS (8 sets, daily range): BP systolic 106–162; BP diastolic 60–76
[2018-10-16] MEDS: IPRATROPIUM BROMIDE 0.02% 2.5 ML NEB NEB SCH ×6 (03:15→23:40)
[2018-10-16] MEDS: ALBUTEROL SULF 0.083% NEB SOLN 3 ML NEB NEB SCH ×6 (03:15→23:40)
[2018-10-16] MEDS: NYSTATIN SUSPENSION 5 ML UDC PO SCH ×5 (05:58→20:18)
[2018-10-16] MEDS: PIPER-TAZ 3.375 GM 50 ML IV SCH ×4 (05:58→23:32)
[2018-10-16] MEDS: LEVOTHYROXINE SODIUM 100 MCG TAB PO SCH (06:07)
[2018-10-16] MEDS: ACETAMINOPHEN/CODEINE 300MG - 30MG TAB PO PRN ×3 (06:08→18:47)
--- NOTE | 2018-10-16 07:16 | NUR ---
PT SITTING UPRIGHT IN BED SIDE RESP EVEN AND UNLABORED AT THIS TIME, NO DISTRESS NOTED, NO C/O PAIN WHEN ASKED, CALL LIGHT IN REACH.
[2018-10-16] MEDS: SERTRALINE HCL 50 MG TAB PO SCH (09:24)
[2018-10-16] MEDS: NYSTATIN 15 GM POWDER UD BTL TOP SCH ×2 (09:24→17:32)
[2018-10-16] MEDS: BENZONATATE 100 MG CAP PO SCH ×3 (09:24→20:18)
[2018-10-16] MEDS: GABAPENTIN 100 MG CAP PO SCH ×3 (09:24→20:18)
[2018-10-16] MEDS: ARTIFICIAL TEARS (OPTH) 15 ML BTL OU SCH ×2 (09:24→17:32)
[2018-10-16] MEDS: POTASSIUM CHLORIDE 20 MEQ TAB CR PO SCH (09:24)
[2018-10-16] MEDS: FUROSEMIDE 20 MG TAB PO SCH (09:24)
[2018-10-16] MEDS: FOLIC ACID 1 MG TAB PO SCH (09:24)
[2018-10-16] MEDS: PREDNISONE 10 MG TAB PO SCH (09:24)
[2018-10-16] MEDS: AMLODIPINE BESYLATE 5 MG TAB PO SCH (09:24)
[2018-10-16] MEDS: ALLOPURINOL 100 MG TAB PO SCH (09:24)
[2018-10-16] MEDS: PANTOPRAZOLE 40 MG 10ML VIAL IV SCH ×2 (09:25→17:32)
[2018-10-16] MEDS: METOPROLOL TARTRATE 25 MG TAB PO SCH ×2 (09:25→17:34)
--- NOTE | 2018-10-16 11:34 | NUR ---
WOUND CARE CONSULTATION: THIS IS AN 83 YEAR OLD FEMALE PATIENT ADMITTED TO [facility] FOR CHF, COPD EXACERBATION, AND PNEUMONIA. PATIENT HAS A HISTORY OF CHF, HYPOTHYROIDISM, PERIPHERAL NEUROPATHY, HTN, MORBID OBESITY, AND DEMENTIA. DAUGHTER IS AT BEDSIDE DURING ASSESSMENT. PATIENT IS A RESIDENT OF [facility] AND WILL BE RETURNING THERE AFTER DISCHARGE PER FAMILY. HEAD TO TOE ASSESSMENT PERFORMED. PATIENT HAS A LOWER LUMBAR INCISION WITH 8 SUTURES INTACT TO INCISION LINE, MEASURING 6X0.1X0.1CM. PER DAUGHTER THE PATIENT HAD A CANCEROUS MASS REMOVED SURGICALLY ON August BY SURGEON AT [facility] D[facility]. DR. LUCERO ASSESSED THE INCISION AND SAID HE DOES NOT FEEL COMFORTABLE HAVING SUTURES REMOVED AT THIS TIME. PATIENT HAS A STAGE 1 PRESSURE ULCER TO HER BILATERAL LOWER BUTTOCKS MEASURING 8X15X0, SKIN INTACT AND 100% NONBLANCHABLE REDNESS NOTED WITH ASSESSMENT. PATIENT HAS NAOMI AREA DENUDED AREAS TO NAOMI AREA AND BILATERAL GROIN CREASES. PATIENT CURRENTLY HAS A HORNER CATHETER IN PLACE BUT IS NORMALLY INCONTINENT OF URINE AND STOOL. 1+ PITTING EDEMA NOTED TO BLE, STRONG PALPABLE PULSES NOTED TO DP AND PT PULSES TO BLE. BUE MULTIPLE SMALL BRUISES NOTED DUE TO VENOUS IV STICKS, PER FAMILY. LABS: WBC13.53 ALB2.4 [id number] URINE CX - NEGATIVE BLOOD CX - NEGATIVE SPUTUM CX = POSITIVE FOR YEAST SPECIES MEDICATIONS: ZOSYN VANCOMYCIN RECOMMENDATION: -CONTINUE ALTERNATING PRESSURE RELIEF MATTRESS. -APPLY BILATERAL HEEL PROTECTORS WITH PILLOW SUSPENSION. -TURN EVERY 2 HOURS AND PRN. -NURSING TO CLEAN LOWER LUMBAR INCISION WITH NORMAL SALINE, PAT DRY, APPLY MAXORB AG, OPTIFOAM AND SECURE WITH TAPE; CHANGE DAILY AND PRN. -NURSING TO CLEAN BILATERAL LOWER BUTTOCKS STAGE 1 PRESSURE ULCER WITH NORMAL SALINE, PAT DRY, APPLY VENELEX THEN ALLEVYN FOAM; CHANGE DRESSING DAILY AND PRN. -NURSING TO CLEAN NAOMI AREA WITH SOAP AND WATER, PAT DRY, APPLY NYSTATIN CREAM TO DENUDED AREAS BID AND PRN. THANK YOU FOR THIS WOUND CARE CONSULT. Addendum: 10/16/18 at 1154 by Nano Oliver RN Amended: Links added.
[2018-10-16] MEDS ORDERED: VANCOMYCIN 1GM/NS 250 ML 250 ML IV SCH (12:15)
--- NOTE | 2018-10-16 16:05 | NUR ---
Nutrition Follow-up Note RD Recommendation for Physician: - Continue current diet as ordered Plan of Care: Patient has been screened and assessed for nutrition risk. At this time, the patient does not pose any nutrition risk. No further nutrition intervention is warranted at this time. Will re-evaluate if consulted by medical staff. Nutrition reason for involvement: Follow up Primary Diagnose(s): CHF, COPD exacerbation PMH: Hypertension, COPD on home outpatient oxygen, hypothyroid, anemia, reported dementia, GERD, psychosis, CKD, and chronic back pain. Ht: 68in Wt: 191.13lb; 192.25lb BMI: 29.1kg/m2 IBW: 140lb RD Assessment: (10/16) Chart reviewed. Visited pt in the room. Pt with fair appetite and 100% observed lunch intake today. No complains of nausea or vomiting. Current diet is appropriate and adequate. Weight has been stable. (10/11) Chart reviewed. Labs and meds reviewed. 83yo F, who was admitted from [facility] for respiratory failure and confusion. Visited pt in the room. Pt reported fair appetite with >50% observed lunch intake. Per daughter, pt was having nausea and vomited this AM. Pt has some chewing difficulty with her denture but refused texture modification. Pt also reported swallowing problem for many years. Pt stated the bone below my neck is bothering me when I swallow. It is not in the right position. However, pt was tolerating current diet texture without aspiration episode noted. Weight has been stable. Will continue to monitor and follow. Current Diet: cardiac diet Malnutrition Evaluation (10/11/2018) The patient does not meet criteria for a specified degree of malnutrition at this time. Will re-evaluate at follow-up as appropriate. Diet Education Needs Assessment: Diet education indicated, pt was not interested. Nutrition Care Level: low Signed: Sanam Choi, MS, RD, LD
[2018-10-16] MEDS ORDERED: NYSTATIN 100,000 UNITS/GM CRM 30GM TUBE TOP SCH (17:00)
--- NOTE | 2018-10-16 19:33 | NUR ---
report given to oncoming nurse, pt stable at this time.
--- NOTE | 2018-10-16 19:51 | NUR ---
Pulmonary Medicine DATE OF ENCOUNTER: 10/16/2018 SUBJECTIVE: expectorating less phlegm 3 L/min oxygen rosa in EGD yesterday 1. Rule out Juliet esophagitis. 2. Small sliding hiatal hernia. 3. Gastritis. 4. Gastric ulcers, antrum, minute without active bleeding or stigmata of recent hemorrhage. Biopsies obtained. PLAN: Follow up histology. Continue Protonix 40 mg IV b.i.d. Start nystatin swish and swallow as ordered. Findings do not necessarily explain the patient's melena. She might benefit from a colonoscopy. REVIEW OF SYSTEMS: no rash, no epistaxis OBJECTIVE: VITAL SIGNS: vital signs noted per the chart record. GENERAL: NAD, talkative HEENT: Normocephalic and atraumatic. NECK: Supple. Throat midline. LUNGS: Bilateral air entry, mild rhonchi CARDIOVASCULAR: S1, S2. No murmurs, rubs ABDOMEN: Soft, nontender. EXTREMITIES: No clubbing, no cyanosis, 1+ leg edema bilaterally. INTEGUMENT: No rash, mild stasis changes on legs. LABORATORY DATA: no new updates IMPRESSION AND PLAN: 1. Acute respiratory failure, BiPAP salvage. off bipap 2. Chronic respiratory failure, hypoxemic. on outpatient oxygen. 3. Encephalopathy, multifactorial, metabolic. Better 4. Bilateral gram negative pneumonia, acquired prior to hospitalization. 5. History of chronic obstructive pulmonary disease, treated as additional exacerbation. 6. Bronchiectasis, chronic underlying lung disease. 7. Hypertension. 8. Hypothyroid condition. 9. Reported dementia. 10. Gastroesophageal reflux disease. 11. History of psychosis. 12. Mild chronic kidney disease. 13. History of chronic back pain. 14. History of biofuel exposure in youth & chronic smoking. 15. melena, GI bleed Continue supportive oxygen. Steroids wean Antibiotics Bronchodilators. Repeat intermittent CXR until cleared Augment bronchial hygiene, CPT cough medication hold blood thinners as necessary for GI bleed. GI workup Thank you very much, Dr. Owens for allowing me to participate in the care of Ms. Wynn. Do not hesitate to contact me if I can help in anyway.
[2018-10-16] MEDS: MELATONIN 5 MG TABLET PO SCH (20:18)
[2018-10-16] MEDS: TRAZODONE HCL 50 MG TAB PO SCH (20:18)
--- NOTE | 2018-10-16 20:44 | Progress Note ---
DATE: 10/16/2018 Medicine Progress Note SUBJECTIVE: The patient is actually doing well today with no complaints. No overnight events. PHYSICAL EXAMINATION: VITAL SIGNS: Temperature is 98.4, pulse 66, respiratory rate is 20, blood pressure 128/60 pulse ox 97%, she is on 3 L of a cannula chronically even at home. GENERAL: Not in acute distress, alert and oriented x3. Cooperative on examination. HEENT: Head is normocephalic, atraumatic. Eyes; pupils are equal, round and reactive to light bilaterally. Extraocular movements are intact bilaterally. NECK: Supple. Good range of motion. Throat, no evidence of erythema or exudates in the posterior pharynx. Has poor dentition. PULMONARY: Clear to auscultation bilaterally. No wheezing, rales or rhonchi, no crackles appreciated. CARDIOVASCULAR: Positive S1, S2. No murmurs, rubs, or gallops appreciated. ABDOMEN: Soft, nontender to palpation. Bowel sounds present. MUSCULOSKELETAL: Strength is 5/5 throughout. No evidence of muscle deficits on examination. No weakness appreciated. NEUROLOGIC: Cranial nerves II through XII are grossly intact. No evidence of any neurological deficits on exam. SKIN: Intact. Warm to touch. Good cap refill. PSYCHIATRIC: Normal affect and mood. EXTREMITIES: No edema. Good range of motion throughout. LABORATORY DATA: Her CBC is reviewed, stable. Chemistries, reviewed and stable. Microbiology, no growth. IMPRESSION: 1. Acute exacerbation of congestive heart failure with diastolic dysfunction. 2. Healthcare associated pneumonia. 3. Chronic obstructive pulmonary disease exacerbation. 4. Hypertension. 5. Hypothyroidism. 6. Baseline dementia. 7. Lower lumbar concern for wound infection with sutures, evaluated by Wound Care Services. No evidence of any infection. 8. Black tarry stool, status post EGD on 10/15/2018, shows gastritis, small hiatal hernia, gastric ulcers without any evidence of active bleeding, concerns of Juliet esophagitis. PLAN: At this time, continue with IV antibiotics. and ID is following. She is also on diuretics. All cultures have been negative. She is on steroids as well as neb treatments and antibiotics and Pulmonary is following very closely. She did have evidence of Juliet esophagitis, started on Protonix twice daily and we will have continue to have GI follow the patient as well. Pulmonary, Cardiology GE, and Infectious Disease, all consulted and following closely. Otherwise, the patient will be cleared tomorrow for discharge back to the shelter. She will go home on oral Diflucan . MD CEDRIC Gerber/PENNY /[id number]
[2018-10-17 00:04] VITALS: BP 124/66
[2018-10-17] MEDS: ALBUTEROL SULF 0.083% NEB SOLN 3 ML NEB NEB SCH ×3 (03:50→11:00)
[2018-10-17] MEDS: IPRATROPIUM BROMIDE 0.02% 2.5 ML NEB NEB SCH ×3 (03:50→11:00)
[2018-10-17 05:01] VITALS: BP 109/51
[2018-10-17] MEDS: NYSTATIN SUSPENSION 5 ML UDC PO SCH ×3 (05:49→13:07)
[2018-10-17] MEDS: PIPER-TAZ 3.375 GM 50 ML IV SCH ×2 (05:49→12:00)
[2018-10-17] MEDS: LEVOTHYROXINE SODIUM 100 MCG TAB PO SCH (05:49)
[2018-10-17] MEDS: ACETAMINOPHEN/CODEINE 300MG - 30MG TAB PO PRN ×2 (05:50→12:00)
[2018-10-17 05:57] LABS: BASOPHILS % 0.3 % (0.0-1.0); EOSINOPHILS # (AUTO) 0.2 (0.0-0.4); EOSINOPHILS % 2.1 % (0.0-6.0); HEMATOCRIT 33.9 % (34.2-44.1); HEMOGLOBIN 10.1 g/dL (12.0-16.0); LYMPHOCYTES # (AUTO) 1.7 (1.0-3.2); LYMPHOCYTES % 16.1 % (18.0-39.1); MEAN CORPUSCULAR HEMOGLOBIN 26.4 pg (28-32); MEAN CORPUSCULAR HGB CONC 29.8 g/dL (31-35); MEAN CORPUSCULAR VOLUME 88.5 fL (81-99); MONOCYTES # (AUTO) 0.5 (0.2-0.8); MONOCYTES % 4.9 % (4.4-11.3); NEUTROPHILS # (AUTO) 7.7 (2.1-6.9); NEUTROPHILS % 71.7 % (38.7-80.0); PLATELET COUNT 205 x10e3/uL (140-360); RED BLOOD COUNT 3.83 x10e6/uL (3.6-5.1); RED CELL DISTRIBUTION WIDTH 16.4 % (11.7-14.4)
--- NOTE | 2018-10-17 06:05 | Diagnostic Imaging Report ---
EXAMINATION: CHEST SINGLE (PORTABLE) INDICATION: ^pneumonia ^[id number] ^[id number] COMPARISON: 10/14/2018 FINDINGS: AP view TUBES and LINES: None. LUNGS: Lungs are well inflated. Mildly decreased bilateral airspace opacities. PLEURA: No pneumothorax. No significant pleural effusions. HEART AND MEDIASTINUM: The cardiomediastinal silhouette is enlarged. BONES AND SOFT TISSUES: No acute osseous lesion. Unchanged surgical clips projecting over the left scapula. Soft tissues are unremarkable. UPPER ABDOMEN: No free air under the diaphragm. IMPRESSION: Mildly decreased bilateral airspace opacities, representing slightly improved edema and/or pneumonia. Signed by: Dr. Ta Saba MD on 10/17/2018 6:01 AM
[2018-10-17 06:15] LABS: ANION GAP 12.7 mmol/L (8-16); BLOOD UREA NITROGEN 19 mg/dL (7-26); BUN/CREATININE RATIO 22 (6-25); CALCIUM 9.3 mg/dL (8.4-10.2); CARBON DIOXIDE 36 mmol/L (22-29); CHLORIDE 97 mmol/L (98-107); CREATININE, SERUM 0.86 mg/dL (0.57-1.11); EST GLOMERULAR FILTRATION RATE > 60 ML/MIN (60-); GLUCOSE 120 mg/dL (74-118); POTASSIUM 3.7 mmol/L (3.5-5.1); SODIUM 142 mmol/L (136-145)
[2018-10-17 07:30] VITALS: BP 144/63
--- NOTE | 2018-10-17 07:30 | NUR ---
REC'D PATIENT AAOX2, SITTING UP ON BED, IV TO THE RIGHT FA 20 GAUGE WITH NO COMPLICATIONS, REC'V OXYGEN VIA NASAL CANNULA, 2 L/MIN. NO S/S OF DISTRESS. BED IN LOWEST POSITION, SIDE RAILS UPX2, AND CALL RO WITHIN REACH.
[2018-10-17] MEDS ORDERED: BALSAM PERU/CASTOR OIL 5 GM OINT...G. TP SCH (09:00)
[2018-10-17] MEDS ORDERED: VANCOMYCIN HCL 1.25 GM in SODIUM CHLORIDE 0.9% 250ML 250 ML IV SCH (09:00)
[2018-10-17] MEDS: FUROSEMIDE 20 MG TAB PO SCH (09:06)
[2018-10-17] MEDS: POTASSIUM CHLORIDE 20 MEQ TAB CR PO SCH (09:06)
[2018-10-17] MEDS: FOLIC ACID 1 MG TAB PO SCH (09:06)
[2018-10-17] MEDS: ARTIFICIAL TEARS (OPTH) 15 ML BTL OU SCH (09:06)
[2018-10-17] MEDS: ALLOPURINOL 100 MG TAB PO SCH (09:07)
[2018-10-17] MEDS: PREDNISONE 10 MG TAB PO SCH (09:07)
[2018-10-17] MEDS: SERTRALINE HCL 50 MG TAB PO SCH (09:07)
[2018-10-17] MEDS: AMLODIPINE BESYLATE 5 MG TAB PO SCH (09:07)
[2018-10-17] MEDS: GABAPENTIN 100 MG CAP PO SCH (09:07)
[2018-10-17] MEDS: PANTOPRAZOLE 40 MG 10ML VIAL IV SCH (09:07)
[2018-10-17] MEDS: BENZONATATE 100 MG CAP PO SCH (09:07)
[2018-10-17] MEDS: METOPROLOL TARTRATE 25 MG TAB PO SCH (09:07)
[2018-10-17 09:28] VITALS: BP 141/63
--- NOTE | 2018-10-17 11:45 | NUR ---
DR. LUCERO GAVE ORDER TO TRANSFER PATIENT BACK TO [facility]. ORDERS TO BE CARRIED OUT.
[2018-10-17 12:06] VITALS: BP 122/57
--- NOTE | 2018-10-17 13:23 | Discharge Summary ---
FINAL DISCHARGE DIAGNOSES: 1. Acute exacerbation of congestive heart failure with diastolic dysfunction. 2. Healthcare-associated pneumonia. 3. Chronic obstructive pulmonary disease exacerbation. 4. Hypertension. 5. Hypothyroidism. 6. Dementia. 7. Lower lumbar sutures. No evidence of infection based on wound care. 8. Black tarry stools status post esophagogastroduodenoscopy on 10/15/2018, shows gastritis, small hiatal hernia, gastric ulcer without evidence of any active bleeding, but shows evidence of kirk esophagitis. CONSULTANTS: Infectious Disease, Pulmonary Gastroenterology, Cardiology. VITAL SIGNS: Temperature is 96.7, pulse is 60, respiratory rate is 20, blood pressure 122/57, pulse ox is 95% on room air. LAB FINDINGS: Show white count 10.78 with hemoglobin 10, hematocrit 34, platelets of 205. Coagulation is normal. Chemistry; sodium 142, potassium 3.7, chloride 97, bicarb 36, anion gap of 12, BUN 19, creatinine 0.86, calcium 9.3. MICROBIOLOGY: Blood cultures, no growth. Urine cultures were negative. Gram stain cultures were negative. Sputum culture showed some yeast, on Diflucan now. IMAGING STUDIES: Chest x-ray shows asymmetric opacity in the left lung apex. May represent sequela of prior granulomatous disease, however, CT chest is needed for evaluation. There is some cardiomegaly and mild pulmonary interstitial edema seen concern for possible pneumonia. CT brain was found to be negative for any acute findings. CT chest shows no evidence any pulmonary embolism. There is some evidence of a multifocal pneumonia or aspiration, possibly also underlying fluid overload and edema. There is evidence of pulmonary hypertension. Mediastinal adenopathy secondary to reactive is described. Diffuse hepatic steatosis. Chest x-ray on 10/17/2018 shows mildly decreased bilateral airspace opacity representing slightly improved edema and/or pneumonia. HOSPITAL COURSE: This is an 83-year-old female, morbidly obese with a history of COPD on chronic home O2 and has a history of CHF, comes into the ED with complaints of underlying shortness of breath and pulmonary edema. The patient was admitted and treated for underlying acute exacerbation of CHF with known diastolic dysfunction with IV diuretics. Cardiology was consulted and medications were adjusted accordingly. The patient will be discharged on cardioprotective medications, no further cardiac workup was needed. The patient was also being treated with broad-spectrum IV antibiotics for underlying healthcare-associated pneumonia and ID was consulted. All cultures were found to be negative, blood and urine. The patient will be discharged on oral Augmentin. She was also on steroids, was being treated for acute exacerbation of COPD, which Pulmonary was following accordingly. She is also on neb treatments. Blood pressure was well managed and controlled. The patient also had some sutures in the lower lumbar back, which was performed by a accessibility lift technician as an outpatient. I had Wound Care come look at this and they did not feel like there was any evidence of infection and no further intervention was needed. The patient will need to have her sutures removed by her accessibility lift technician. During her hospital stay, she developed some black tarry stool and which required GI consultation. The patient is status post EGD on 10/15/2018, that shows gastritis, small hiatal hernia, gastric ulcers, but there was no evidence of any active bleeding. There was some evidence of kirk esophagitis. The patient was started on oral Niaspan while she was here in the hospital stay. Hemodynamically maintained stable. She was discharged on oral Protonix twice daily as well as nystatin. The patient was advised to follow up with GI as an outpatient in the next 1-2 weeks for pathology results. On discharge, the patient was doing well, back to normal baseline, had no other complaints. On the day of discharge, vital signs stable, labs reviewed and stable. The patient seen and evaluated, examined thoroughly on the day of discharge, no other complaints. The patient verbalized understanding and agrees with plan of care, to follow up as an outpatient with the primary care physician in 1 week and rest of the consultants especially GI in 2 weeks' time to get her pathology results. MEDICATIONS: See med reconciliation form. DISPOSITION: To longterm. CONDITION: Stable. DIET: Heart healthy. In the event of any worsening symptoms, the patient was advised to come back to the ED for further evaluation. Discharge summary took greater than 35 minutes. I discussed overall plan of care with the family and the patient, they verbalized understanding. MD CEDRIC Gerber/PENNY /[id number]
[2018-10-17 13:44] LABS: LYMPHOCYTES % (MANUAL) 14 % (19-48); METAMYELOCYTES % (MANUAL) 1 % (0-0); MONOCYTES % (MANUAL) 5 % (3.4-9.0); MYELOCYTES % (MANUAL) 1 % (0-0); NEUTROPHILS % (MANUAL) 76 % (40-74); PROMYELOCYTES % (MANUAL) 2 % (0-0)
[2018-10-17 13:45] LABS: ANISOCYTOSIS SLIGHT; HYPOCHROMASIA SLIGHT; PLATELET ESTIMATE ADEQUATE; PLATELET MORPHOLOGY COMMENT NORMAL; RBC MORPHOLOGY COMMENT NORMAL
[2018-10-17] MEDS ORDERED: PREDNISONE5 MG PO (13:53)
[2018-10-17] MEDS ORDERED: AUGMENTIN 875-1 EACH PO (13:53)
[2018-10-17] MEDS ORDERED: DIFLUCAN100 MG PO (13:55)
[2018-10-17] MEDS ORDERED: NORVASC5 MG PO (13:56)
[2018-10-17] MEDS ORDERED: METOPROLOL TART25 MG PO (13:57)
[2018-10-17] MEDS ORDERED: PANTOPRAZOLE SO40 MG PO (13:58)
[2018-10-17] MEDS ORDERED: NYSTATIN1 EAC2 (14:00)
--- NOTE | 2018-10-17 15:26 | NUR ---
GAVE REPORT TO [facility] NURSE. REMOVED PATIENT IV AND APPLIED PRESSURE WITH GAUZE AND TAPE. NO COMPLICATIONS TO IV SITE. OXYGEN DELIVERED VIA NC AT 2L/MIN. 16 F [employer] AND [employer]. BELONGING GATHERED UP. EMS PICKED UP PATIENT FOR TRANSFER. NO S/S OF DISTRESS. DISCHARGE PAPERWORK AND PRESCRIPTIONS GIVEN TO EMS IN FOLDER.
--- NOTE | 2018-10-17 23:36 | NUR ---
Pulmonary Medicine DATE OF ENCOUNTER: 10/17/2018 SUBJECTIVE: mildly better subjectively cxr mildly improved eating 3 L/min oxygen REVIEW OF SYSTEMS: no rash, no epistaxis OBJECTIVE: VITAL SIGNS: vital signs noted per the chart record. GENERAL: NAD, talkative HEENT: Normocephalic and atraumatic. NECK: Supple. Throat midline. LUNGS: Bilateral air entry, mild rhonchi CARDIOVASCULAR: S1, S2. No murmurs, rubs ABDOMEN: Soft, nontender. EXTREMITIES: No clubbing, no cyanosis, 1+ leg edema bilaterally. INTEGUMENT: No rash, mild stasis changes on legs. LABORATORY DATA: no new updates IMPRESSION AND PLAN: 1. Acute respiratory failure, BiPAP salvage. off bipap 2. Chronic respiratory failure, hypoxemic. on outpatient oxygen. 3. Encephalopathy, multifactorial, metabolic. Better 4. Bilateral gram negative pneumonia, acquired prior to hospitalization. 5. History of chronic obstructive pulmonary disease, treated as additional exacerbation. 6. Bronchiectasis, chronic underlying lung disease. 7. Hypertension. 8. Hypothyroid condition. 9. Reported dementia. 10. Gastroesophageal reflux disease. 11. History of psychosis. 12. Mild chronic kidney disease. 13. History of chronic back pain. 14. History of biofuel exposure in youth & chronic smoking. 15. melena, GI bleed Continue supportive oxygen. Steroids wean Antibiotics Bronchodilators. Repeat intermittent CXR until cleared Augment bronchial hygiene, CPT cough medication hold blood thinners as necessary for GI bleed ok for discharge to SNF Thank you very much, Dr. Owens for allowing me to participate in the care of Ms. Wynn. Do not hesitate to contact me if I can help in anyway.
== END 2018-10-17 15:26 | DRG 291 ==
LOC: ER 11:51 → ERHOLD 16:00 → IMCU 16:40 → ICU 10-12 18:06 → MED/SURG2 10-14 20:16
PROVIDERS: ADMIT Internal Medicine; ATTEND Internal Medicine
PROC: 0DB78ZX Excision of Stomach, Pylorus, Via Natural or Artificial Opening Endoscopic, Diagnostic (ICD-10-PCS; 2018-10-15)
PROC: 0DD58ZX Extraction of Esophagus, Via Natural or Artificial Opening Endoscopic, Diagnostic (ICD-10-PCS; principal; 2018-10-15 08:12)
PROC: 0DB68ZX Excision of Stomach, Via Natural or Artificial Opening Endoscopic, Diagnostic (ICD-10-PCS; 2018-10-15 08:12)
DX: I13.0 Hypertensive heart and chronic kidney disease with heart failure and stage 1 through stage 4 chronic kidney disease, or unspecified chronic kidney disease (principal); J18.0 Bronchopneumonia, unspecified organism; J96.21 Acute and chronic respiratory failure with hypoxia; G93.41 Metabolic encephalopathy; J96.22 Acute and chronic respiratory failure with hypercapnia; I50.33 Acute on chronic diastolic (congestive) heart failure; J44.0 Chronic obstructive pulmonary disease with (acute) lower respiratory infection; J44.1 Chronic obstructive pulmonary disease with (acute) exacerbation; E87.3 Alkalosis; B37.81 Candidal esophagitis; Z88.8 Allergy status to other drugs, medicaments and biological substances; Z91.018 Allergy to other foods; E03.9 Hypothyroidism, unspecified; Z87.440 Personal history of urinary (tract) infections; D64.9 Anemia, unspecified; F03.90 Unspecified dementia, unspecified severity, without behavioral disturbance, psychotic disturbance, mood disturbance, and anxiety; F29 Unspecified psychosis not due to a substance or known physiological condition; Z82.49 Family history of ischemic heart disease and other diseases of the circulatory system; G62.9 Polyneuropathy, unspecified; K21.9 Gastro-esophageal reflux disease without esophagitis; Z87.891 Personal history of nicotine dependence; M54.9 Dorsalgia, unspecified; Z99.81 Dependence on supplemental oxygen; K43.9 Ventral hernia without obstruction or gangrene; I25.10 Atherosclerotic heart disease of native coronary artery without angina pectoris; K29.70 Gastritis, unspecified, without bleeding; K44.9 Diaphragmatic hernia without obstruction or gangrene; K25.9 Gastric ulcer, unspecified as acute or chronic, without hemorrhage or perforation; N18.3 Chronic kidney disease, stage 3 (moderate); R53.81 Other malaise; E66.01 Morbid (severe) obesity due to excess calories; Z98.890 Other specified postprocedural states; Z68.30 Body mass index [BMI] 30.0-30.9, adult; L89.321 Pressure ulcer of left buttock, stage 1; L89.311 Pressure ulcer of right buttock, stage 1
CPT/HCPCS: 36415; 36600; 43235; 43239; 70450; 71045; 71260; 80048; 80053; 80061; 80202; 81001; 82270; 82550; 82553; 82805; 83605; 83735; 83880; 84443; 84484; 85025; 85610; 85730; 87040; 87070; 87071; 87086; 87106; 87205; 88305; 88312; 93005; 93306; 94640; 94660; 99285; J0456; J1650; J1885; J1940; J2543; J2930; J3010; J3370; J7050; J7512; Q9967